=== PATIENT | female | born 1960 | race Caucasian/White ===

== ENCOUNTER 2016-08-08 19:16 | Inpatient (IN) | payer MEDICARE, MEDICAID ==
--- NOTE | 2016-08-08 20:12 | EKG REPORT ---
SEVERITY:- ABNORMAL ECG - SINUS RHYTHM PROBABLE LEFT ATRIAL ABNORMALITY NONSPECIFIC T ABNORMALITIES, ANT-LAT LEADS BORDERLINE PROLONGED QT INTERVAL : Confirmed by: Jodie Stevenson 08-Aug-2016 20:11:19
--- NOTE | 2016-08-08 20:24 | ER Document Report ---
ED Medical Screen (RME) - General Stated Complaint: CHEST PAIN Mode of Arrival: Ambulatory Information source: Patient Notes: 56 y/o F presents to ED c/o chest pressure, generalized and pain, and headache since yesterday. Reports associated n/v/d yesterday. I have greeted and performed a rapid initial assessment of this patient. A comprehensive ED assessment and evaluation of the patient, analysis of test results and completion of the medical decision making process will be conducted by additional ED providers. TRAVEL OUTSIDE OF THE [place] IN LAST 30 DAYS: No - Related Data Allergies/Adverse Reactions: tramadol HCl [From Ultram] Allergy (Mild, Verified 08/08/16 20:11) aspirin [Aspirin] Allergy (Verified 08/08/16 20:11) diclofenac sodium [From Voltaren] Allergy (Verified 08/08/16 20:11) penicillin G [Penicillin G] Allergy (Verified 08/08/16 20:11) Past Medical History - Social History Frequency of alcohol use: None Drug Abuse: None - Past Medical History Cardiac Medical History: Reports: Hx Hypertension Pulmonary Medical History: Reports: Hx COPD - Emphesyma Renal/ Medical History: Reports: Hx Ovarian Cysts. Denies: Hx Peritoneal Dialysis Musculoskeltal Medical History: Reports Hx Arthritis - RA Psychiatric Medical History: Reports: Hx Anxiety, Hx Bipolar Disorder, Hx Depression Past Surgical History: Reports: Hx Appendectomy, Hx Cholecystectomy, Hx Hysterectomy - Immunizations Immunizations up to date: Yes Hx Diphtheria, Pertussis, Tetanus Vaccination: Yes Physical Exam - Vital signs Vitals: Temp Pulse Resp BP Pulse Ox 98.3 F 99 20 117/79 92 08/08/16 19:56 08/08/16 19:56 08/08/16 19:56 08/08/16 19:56 08/08/16 19:56 - General General appearance: Alert In distress: None - Respiratory Respiratory status: No respiratory distress - Cardiovascular Pulses: Normal: Radial Normal capillary refill: Yes Course - Vital Signs Vital signs: Temp Pulse Resp BP Pulse Ox 98.3 F 99 20 117/79 92 08/08/16 19:56 08/08/16 19:56 08/08/16 19:56 08/08/16 19:56 08/08/16 19:56
[2016-08-08 21:00] LABS: ABSOLUTE BASOPHILS # (AUTO) 0.1 10^3/uL (0.0-0.2); ABSOLUTE EOSINOPHILS # (AUTO) 0.1 10^3/uL (0.0-0.6); ABSOLUTE MONOCYTES (AUTO) 0.9 10^3/uL (0.1-1.4); ABSOLUTE NEUT (AUTO) 4.9 10^3/uL (1.7-8.2); BASOPHILS % (AUTO) 0.5 % (0-2); HEMATOCRIT 38.5 % (36.0-47.0); HEMOGLOBIN 13.6 g/dL (12.0-15.5); HGB HCT DIFFERENCE 2.3; LYMPHOCYTES % (AUTO) 45.4 % (13-45); MEAN CORPUSCULAR HEMOGLOBIN 30.5 pg (27.0-33.4); MEAN CORPUSCULAR HGB CONC 35.2 g/dL (32.0-36.0); MEAN CORPUSCULAR VOLUME 87 fl (80-97); MONOCYTES % (AUTO) 7.9 % (3-13); RED BLOOD COUNT 4.45 10^6/uL (3.72-5.28); RED CELL DISTRIBUTION WIDTH 14.4 % (11.5-14.0); SEGMENTED NEUTROPHILS % (AUTO) 45.2 % (42-78); WHITE BLOOD COUNT 10.9 10^3/uL (4.0-10.5)
[2016-08-08 21:01] LABS: APPEARANCE,URINE CLEAR; BILIRUBIN,URINE NEGATIVE (NEGATIVE); GLUCOSE, URINE NEGATIVE (NEGATIVE); KETONES,URINE NEGATIVE (NEGATIVE); LEUKOCYTE ESTERASE,URINE NEGATIVE (NEGATIVE); NITRITE,URINE NEGATIVE (NEGATIVE); PROTEIN,URINE NEGATIVE (NEGATIVE); URINE SPECIFIC GRAVITY 1.004; UROBILINOGEN,URINE NEGATIVE mg/dL (<2.0)
[2016-08-08 21:18] LABS: ALANINE AMINOTRANSFERASE 19 U/L (9-52); ALBUMIN 4.5 g/dL (3.5-5.0); ALKALINE PHOSPHATASE 74 U/L (38-126); ANION GAP 10 (5-19); ASPARTATE AMINO TRANSFERASE 17 U/L (14-36); BILIRUBIN,TOTAL 0.5 mg/dL (0.2-1.3); BLOOD UREA NITROGEN 11 mg/dL (7-20); CALCIUM 9.5 mg/dL (8.4-10.2); CARBON DIOXIDE 28 mmol/L (22-30); CHLORIDE 81 mmol/L (98-107); CREATINE KINASE 47 U/L (30-135); CREATININE RESULT 1.17 mg/dL (0.52-1.25); GLUCOSE 102 mg/dL (75-110); LIPASE 206.8 U/L (23-300); POTASSIUM 3.7 mmol/L (3.6-5.0); TOTAL PROTEIN 6.9 g/dL (6.3-8.2)
[2016-08-08 21:21] LABS: SODIUM 118.8 mmol/L (137-145)
[2016-08-08 21:29] LABS: CREATINE KINASE MB 0.69 ng/mL (<4.55)
[2016-08-08 21:32] LABS: TROPONIN I < 0.012 ng/mL
[2016-08-09] MEDS ORDERED: NORMAL SALINE 1000 ML 1,000 ML IV ONE (00:40)
[2016-08-09] MEDS ORDERED: HYDROMORPHONE HCL INJ/PF 2 MG/ML AMPULE IV ONE (01:38)
[2016-08-09] MEDS ORDERED: ALBUTEROL SULFATE HFA (90 MCG/PUFF) 200 PUFF/8.5 GM MDI IH PRN (01:42)
[2016-08-09] MEDS ORDERED: FUROSEMIDE INJ/PF 20 MG/2 ML SDV IV ONE (01:42)
--- NOTE | 2016-08-09 01:45 | ER Document Report ---
ED General - General Chief Complaint: Chest Pain Stated Complaint: CHEST PAIN Mode of Arrival: Ambulatory Notes: Patient is a 56-year-old female with past medical history of chronic hyponatremia who presents complaining of diffuse body pain and lightheadedness. States this feels very similar to when she's had severe hyponatremia in the past that has required her to be admitted to the hospital. Denies any alcohol use, diuretic use, or excessive water intake. Notes that the pain is primarily located in her chest, abdomen and low back. Describes the pain as a severe, constant pain. Nothing improves or worsens the pain. She has not seen her primary care physician regarding today's concerns. Denies any focal weakness, numbness, or seizures. No history of DVT or pulmonary embolus. Does not use any form of estrogen. TRAVEL OUTSIDE OF THE [place] IN LAST 30 DAYS: No - Related Data Allergies/Adverse Reactions: tramadol HCl [From Ultram] Allergy (Mild, Verified 08/08/16 20:11) aspirin [Aspirin] Allergy (Verified 08/08/16 20:11) diclofenac sodium [From Voltaren] Allergy (Verified 08/08/16 20:11) penicillin G [Penicillin G] Allergy (Verified 08/08/16 20:11) Home Medications: Current Home Medications Lisinopril/Hydrochlorothiazide [Lisinopril-Hctz 20-25 mg Tab] 1 each PO DAILY [History] Ondansetron [Zuplenz] 8 mg PO TID PRN 08/09/16 [History] Paroxetine HCl [Paxil Cr 25 Mg Tab.Sr] 50 mg PO DAILY 08/09/16 [History] Past Medical History - General Information source: Patient - Social History Smoking Status: Former Smoker Frequency of alcohol use: None Drug Abuse: None Lives with: Spouse/Significant other Family History: Reviewed & Not Pertinent Patient has suicidal ideation: No Patient has homicidal ideation: No - Past Medical History Cardiac Medical History: Reports: Hx Hypertension Pulmonary Medical History: Reports: Hx COPD - Emphesyma Renal/ Medical History: Reports: Hx Ovarian Cysts. Denies: Hx Peritoneal Dialysis Musculoskeltal Medical History: Reports Hx Arthritis - RA Psychiatric Medical History: Reports: Hx Anxiety, Hx Bipolar Disorder, Hx Depression Past Surgical History: Reports: Hx Appendectomy, Hx Cholecystectomy, Hx Hysterectomy - Immunizations Immunizations up to date: Yes Hx Diphtheria, Pertussis, Tetanus Vaccination: Yes Review of Systems - Review of Systems Notes: Constitutional: Negative for fever. HENT: Negative for sore throat. Eyes: Negative for visual changes. Cardiovascular: Positive for chest pain. Respiratory: Negative for shortness of breath. Gastrointestinal: Positive for abdominal pain and vomiting Genitourinary: Negative for dysuria. Musculoskeletal: Negative for back pain. Skin: Negative for rash. Neurological: Negative for headaches, weakness or numbness. 10 point ROS negative except as marked above and in HPI. Physical Exam - Vital signs Vitals: Temp Pulse Resp BP Pulse Ox 98.3 F 99 20 117/79 92 08/08/16 19:56 08/08/16 19:56 08/08/16 19:56 08/08/16 19:56 08/08/16 19:56 Interpretation: Normal Notes: PHYSICAL EXAMINATION: GENERAL: He is uncomfortable but in no acute distress HEAD: Atraumatic, normocephalic. EYES: Pupils equal round and reactive to light, extraocular movements intact, sclera anicteric, conjunctiva are normal. ENT: nares patent, oropharynx clear without exudates. Moist mucous membranes. NECK: Normal range of motion, supple without lymphadenopathy LUNGS: Breath sounds clear to auscultation bilaterally and equal. No wheezes rales or rhonchi. HEART: Regular rate and rhythm without murmurs ABDOMEN: Soft, nontender, normoactive bowel sounds. No guarding, no rebound. No masses appreciated. EXTREMITIES: Normal range of motion, no pitting or edema. No cyanosis. NEUROLOGICAL: No focal neurological deficits. Moves all extremities spontaneously and on command. PSYCH: Anxious SKIN: Warm, Dry, normal turgor, no rashes or lesions noted. Course - Re-evaluation Re-evalutation: 08/09/16 01:44 Patient presents with severe hyponatremia what I suspect be diffuse musculoskeletal spasms. She complains of total body pain worsen her back, abdomen and chest all the she has no focal abdominal tenderness on exam. No rebound or guarding. I do not suspect any acute biliary pathology, pancreatitis , bowel obstruction, or mesenteric ischemia based on her exam and history. Her EKG is unremarkable and her troponin is negative. I do not suspect ACS, PE, or aortic dissection. Chest x-ray is clear. Patient has had similar pain in the past with severe hyponatremia and may be related. I discussed this case with the hospitalist Dr. Obrien will admit - Vital Signs Vital signs: Temp Pulse Resp BP Pulse Ox 98.3 F 99 20 117/79 92 08/08/16 19:56 08/08/16 19:56 08/08/16 19:56 08/08/16 19:56 08/08/16 19:56 - Laboratory Result Diagrams: 08/08/16 20:47 08/09/16 01:38 Laboratory results interpreted by me: 08/08/16 08/08/16 08/09/16 20:47 20:47 01:38 WBC 10.9 H RDW 14.4 H Lymphocytes % 45.4 H Absolute Lymphocytes 5.0 H Sodium 118.8 L* 118.5 L* Potassium 3.2 L Chloride 81 L 82 L Est GFR ( Amer) 57 L Est GFR (Non-Af Amer) 48 L 51 L - Diagnostic Test Radiology reviewed: Image reviewed, Reports reviewed Radiology results interpreted by me: 08/09/16 02:57 Chest x-ray: No acute infiltrate - EKG Interpretation by Me Additional EKG results interpreted by me: 08/09/16 02:57 Sinus rhythm. Rate 96. No ST elevations or depressions. QTC is 496. Discharge - Discharge Clinical Impression: Hyponatremia, Epigastric pain Condition: Fair Disposition: ADMITTED INPATIENT Admitting Provider: Suhail Obrien Unit Admitted: IMCU Referrals: JANAY GRULLON, [employer]ATION SUPERVISOR-C [Primary Care Provider] - Follow up as needed
[2016-08-09] MEDS ORDERED: ACETAMINOPHEN 325 MG TABLET PO PRN (01:47)
[2016-08-09] MEDS ORDERED: ONDANSETRON HCL INJ/PF 4 MG/2 ML SDV IV PRN (01:47)
[2016-08-09] MEDS ORDERED: MAGNESIUM HYDROXIDE SUSP 30 ML UDCUP PO PRN (01:47)
[2016-08-09 02:39] LABS: ANION GAP 7 (5-19); BLOOD UREA NITROGEN 10 mg/dL (7-20); CALCIUM 8.9 mg/dL (8.4-10.2); CARBON DIOXIDE 30 mmol/L (22-30); CHLORIDE 82 mmol/L (98-107); GLUCOSE 89 mg/dL (75-110); POTASSIUM 3.2 mmol/L (3.6-5.0)
[2016-08-09 02:50] LABS: SODIUM 118.5 mmol/L (137-145)
[2016-08-09] MEDS: METOPROLOL TARTRATE 50 MG TABLET PO SCH ×2 (02:51→14:16)
[2016-08-09] MEDS ORDERED: LACTULOSE SYRUP 20 GM/30 ML UDCUP PO ONE (03:57)
[2016-08-09] MEDS: POTASSI CL 20 MEQ/50 ML RIDER 20 MEQ/50 ML RTUPB IV SCH ×2 (04:59→06:52)
--- NOTE | 2016-08-09 06:17 | PDOC H&P ---
History of Present Illness Admission Date/PCP: 08/09/16 01:47 SONAM HUBER Patient complains of: Epigastric pain History of Present Illness: NANNETTE SHAFFER is a 56 year old female with a past medical history of depression with anxiety, hypertension, tobacco, COPD and hyponatremia. Who had been her usual state of health until approximately 7 days ago with a myriad of vague complaints including headache nausea without vomiting epigastric pain low back pain and fatigue. And is seemingly most focused on epigastric pain for which she has taken several [id number] preparations without improvement prompting her to seek evaluation emergency room. In the emergency room she is found to have hyponatremia with sodium of 118, and hyponatremia with a serum osmolarity of 248 and urine specific gravity of 1.001. And is referred to the hospitalist for admission. She admits to the sensation of chronic thirst consuming a minimum of 4 glasses each of water, tea and soda throughout the day. Past Medical History Cardiac Medical History: Reports: Hypertension Pulmonary Medical History: Reports: Chronic Obstructive Pulmonary Disease (COPD ) - Emphesyma Musculoskeltal Medical History: Reports: Arthritis - RA Psychiatric Medical History: Reports: Bipolar Disorder, Depression, General Anxiety Disorder, Tobacco Dependency Past Surgical History Past Surgical History: Reports: Appendectomy, Cholecystectomy, Hysterectomy Social History Information Source: Patient Lives with: Spouse/Significant other Smoking Status: Former Smoker Frequency of Alcohol Use: None Hx Recreational Drug Use: No Hx Prescription Drug Abuse: No - Advance Directive Resuscitation Status: Full Code Family History Family History: Hypertension Parental Family History Reviewed: Yes Children Family History Reviewed: Yes Sibling(s) Family History Reviewed.: Yes Medication/Allergy Home Medications: Lisinopril/Hydrochlorothiazide [Lisinopril-Hctz 20-25 mg Tab] 1 each PO DAILY Ondansetron [Zuplenz] 8 mg PO TID PRN 08/09/16 Paroxetine HCl [Paxil Cr 25 Mg Tab.Sr] 50 mg PO DAILY 08/09/16 Allergies/Adverse Reactions: tramadol HCl [From Ultram] Allergy (Mild, Verified 08/08/16 20:11) aspirin [Aspirin] Allergy (Verified 08/08/16 20:11) diclofenac sodium [From Voltaren] Allergy (Verified 08/08/16 20:11) penicillin G [Penicillin G] Allergy (Verified 08/08/16 20:11) Review of Systems Constitutional: PRESENT: as per HPI, fatigue. ABSENT: chills, fever(s), headache(s), weakness, weight gain, weight loss Eyes: ABSENT: visual disturbances Ears: ABSENT: hearing changes Cardiovascular: ABSENT: chest pain, dyspnea on exertion, edema, orthropnea, palpitations Respiratory: ABSENT: cough, hemoptysis Gastrointestinal: ABSENT: abdominal pain, constipation, diarrhea, hematemesis, hematochezia, nausea, vomiting Genitourinary: ABSENT: dysuria, hematuria Musculoskeletal: ABSENT: joint swelling Integumentary: ABSENT: rash, wounds Neurological: ABSENT: abnormal gait, abnormal speech, confusion, dizziness, focal weakness, syncope Psychiatric: ABSENT: anxiety, depression, homidical ideation, suicidal ideation Endocrine: ABSENT: cold intolerance, heat intolerance, polydipsia, polyuria Hematologic/Lymphatic: ABSENT: easy bleeding, easy bruising Physical Exam Vital Signs: Temp Pulse Resp BP Pulse Ox 98.3 F 99 11 L 111/70 95 08/08/16 19:56 08/08/16 19:56 08/09/16 05:01 08/09/16 05:01 08/09/16 05:01 General appearance: PRESENT: cooperative, disheveled, mild distress Head exam: PRESENT: atraumatic, normocephalic Eye exam: PRESENT: conjunctiva pink, EOMI, PERRLA. ABSENT: scleral icterus Ear exam: PRESENT: normal external ear exam Mouth exam: PRESENT: moist, tongue midline Neck exam: ABSENT: carotid bruit, JVD, lymphadenopathy, thyromegaly Respiratory exam: PRESENT: clear to auscultation benito. ABSENT: rales, rhonchi, wheezes Cardiovascular exam: PRESENT: RRR. ABSENT: diastolic murmur, rubs, systolic murmur Pulses: PRESENT: normal dorsalis pedis pul Vascular exam: PRESENT: normal capillary refill GI/Abdominal exam: PRESENT: hypoactive bowel sounds, soft, tenderness. ABSENT: ascites, diminished bowel sounds, distended, firm, guarding, hernia, hyperactive bowel sounds, mass Rectal exam: PRESENT: deferred Extremities exam: PRESENT: full ROM. ABSENT: calf tenderness, clubbing, pedal edema Neurological exam: PRESENT: alert, awake, oriented to person, oriented to place , oriented to time, oriented to situation, CN II-XII grossly intact. ABSENT: motor sensory deficit Psychiatric exam: PRESENT: anxious Skin exam: PRESENT: dry, intact, warm. ABSENT: cyanosis, rash Results Laboratory Results: 08/09/16 04:49 Serum Osmolality 248 L Impressions: Chest X-Ray 08/08/16 20:12 IMPRESSION: No acute findings. Assessment & Plan - Diagnosis (1) Hyponatremia Is this a current diagnosis for this admission?: YesPlan: History and labs support primary polydipsia, she is without vomiting headache or seizure admitted to and IMCU bed with fluid restriction and reevaluation of chemistry every 6 hours. Though the patient is convinced she is dehydrated, she is offered reassurance with unclear results (2) Gastritis Is this a current diagnosis for this admission?: YesPlan: It is possible this is ineffective hyponatremia itself however I will diagnose gastritis and treat with Carafate and H2 zach as proton pump inhibitor may exacerbate hyponatremia. - Time Time Spent: 30 to 50 Minutes
[2016-08-09] MEDS ORDERED: SUCRALFATE 1 GM TABLET PO ONE (06:22)
[2016-08-09] MEDS ORDERED: FAMOTIDINE 20 MG TABLET PO SCH (06:30)
[2016-08-09] MEDS ORDERED: INFLUENZA ADLT QUAD (36MOS+) 2016-17 VAC 0.5 ML SYR IM PRN (06:46)
[2016-08-09] MEDS: HEPARIN SOD (PORCINE) 5,000 UNIT/ML 1 ML SYRINGE SUBCUT SCH ×3 (06:55→22:33)
[2016-08-09] MEDS ORDERED: POTASSI CL 20 MEQ/NS 1L 1,000 ML IV PRN (07:48)
[2016-08-09] MEDS ORDERED: POTASSIUM CHLORIDE 10 MEQ TABLET.SA PO ONE (07:48)
[2016-08-09] MEDS ORDERED: BISACODYL 10 MG SUPP.RECT PR ONE (09:00)
[2016-08-09] MEDS: SUCRALFATE 1 GM TABLET PO SCH ×4 (09:09→22:33)
[2016-08-09] MEDS: LISINOPRIL 10 MG TABLET PO SCH (09:10)
[2016-08-09] MEDS ORDERED: PAROXETINE HCL 20 MG TABLET PO SCH (10:00)
[2016-08-09 10:37] LABS: ANION GAP 6 (5-19); BLOOD UREA NITROGEN 11 mg/dL (7-20); CALCIUM 9.3 mg/dL (8.4-10.2); CARBON DIOXIDE 29 mmol/L (22-30); CHLORIDE 86 mmol/L (98-107); CREATININE RESULT 1.25 mg/dL (0.52-1.25); GLUCOSE 114 mg/dL (75-110); POTASSIUM 3.9 mmol/L (3.6-5.0); SODIUM 121.3 mmol/L (137-145)
--- NOTE | 2016-08-09 13:33 | PDOC PROGRESS REPORT ---
Subjective Progress Note for:: 08/09/16 Subjective:: Patient has had a 4-5 day history of epigastric pain, nausea, vomiting. She has had remote cholecystectomy. She's never had an EGD. Patient states that she does not take NSAIDs because they "hurt her stomach". Patient denies fever , chills, headache, new focal weakness, chest pain, shortness of breath, diarrhea, constipation. Physical Exam Vital Signs: Temp Pulse Resp BP Pulse Ox 97.5 F 69 16 146/60 H 97 08/09/16 11:48 08/09/16 11:48 08/09/16 11:48 08/09/16 11:48 08/09/16 11:48 Intake & Output 08/08/16 08/09/16 08/10/16 06:59 06:59 06:59 Intake Total 300 Balance 300 Weight 63.5 kg GENERAL: No acute distress HEENT: Conjunctiva clear, nonicteric, moist mucous membranes, no JVD, midline trachea RESPIRATORY: Clear to auscultation bilaterally, no wheezes, no rhonchi CARDIAC: Regular rate and rhythm, no murmurs/gallops/rubs ABDOMEN: Soft, nondistended, mild epigastric tenderness, positive bowel sounds, no rebound, no guarding EXTREMETIES: No edema, cyanosis, clubbing NEUROLOGIC: Alert, oriented to person/place/time, CN's grossly intact, no focal deficits SKIN: No rash, wounds PSYCH: Normal mood, normal affect Results Laboratory Results: 08/09/16 09:49 08/09/16 08/09/16 08/09/16 04:49 09:49 09:49 Sodium 121.3 L Potassium 3.9 Chloride 86 L Carbon Dioxide 29 Anion Gap 6 BUN 11 Creatinine 1.25 Est GFR ( Amer) 53 L Est GFR (Non-Af Amer) 44 L Glucose 114 H Serum Osmolality 248 L Calcium 9.3 TSH 2.60 Impressions: Chest X-Ray 08/08/16 20:12 IMPRESSION: No acute findings. Assessment & Plan - Diagnosis (1) Hyponatremia Is this a current diagnosis for this admission?: YesPlan: Likely secondary to hydrochlorothiazide administration. Discontinue hydrochlorothiazide. Fluid restriction. (2) Hypertension Is this a current diagnosis for this admission?: YesPlan: Continue lisinopril. Discontinue hydrochlorothiazide secondary to hyponatremia. (3) Epigastric pain Is this a current diagnosis for this admission?: YesPlan: Patient states that she does not take NSAIDs because they "hurt her stomach". IV Protonix. Check CT scan abdomen/pelvis. Consult GI for EGD. (4) COPD (chronic obstructive pulmonary disease) Is this a current diagnosis for this admission?: YesPlan: When necessary albuterol (5) Congestive heart failure Qualifiers: Congestive heart failure type: unspecified congestive heart failure type Congestive heart failure chronicity: unspecified congestive heart failure chronicity Qualified Code(s): I50.9 - Heart failure, unspecified Is this a current diagnosis for this admission?: YesPlan: Patient carries history of CHF however Echocardiogram done in 2016 showed normal ejection fraction, no diastolic dysfunction, no significant valvular disease. (6) Depression Is this a current diagnosis for this admission?: YesPlan: Patient takes SSRI in this incidentally dorota contribute to hyponatremia. (7) Arthritis Is this a current diagnosis for this admission?: Yes - Time Time Spent with patient: 35 or more minutes
[2016-08-09] MEDS: HYDROMORPHONE HCL INJ/PF 2 MG/ML AMPULE IV PRN ×2 (14:22→20:23)
--- NOTE | 2016-08-09 14:34 | PDOC CONSULTATION ---
Consultation Consult Date: 08/09/16 Attending physician:: CHRIS MALDONADO Consult reason:: Epigastric pain, dyspepsia, nausea vomiting History of Present Illness Admission Date/PCP: 08/09/16 01:47 SONAM HUBER History of Present Illness: Patient is here for hyponatremia. She has been here several times, she's never had an upper endoscopy before. She is complaining of some epigastric pain and tenderness with occasional nausea and vomiting. This has been going on for a while. She doesn't does have a history of rheumatoid arthritis cannot take any NSAIDs. She denies any melena. There is no dysphagia or odynophagia. There is a component of early satiety. I been asked by the attending physician to perform upper endoscopy to rule out peptic ulcer disease. She denies any blood in the stools. No changes of bowel habits. Past Medical History Cardiac Medical History: Reports: Hypertension Pulmonary Medical History: Reports: Chronic Obstructive Pulmonary Disease (COPD ) - Emphesyma Musculoskeltal Medical History: Reports: Arthritis - RA Psychiatric Medical History: Reports: Bipolar Disorder, Depression, General Anxiety Disorder, Tobacco Dependency Past Surgical History Past Surgical History: Reports: Appendectomy, Cholecystectomy, Hysterectomy Social History Lives with: Spouse/Significant other Smoking Status: Former Smoker Cigarettes Packs Per Day: 1 Number of Years Smokin Last Time Smoked: Frequency of Alcohol Use: None Hx Recreational Drug Use: No Hx Prescription Drug Abuse: No - Advance Directive Resuscitation Status: Full Code Family History Family History: Hypertension Parental Family History Reviewed: Yes Children Family History Reviewed: Unknown Sibling(s) Family History Reviewed.: Unknown Medication/Allergy Home Medications: Lisinopril/Hydrochlorothiazide [Lisinopril-Hctz 20-25 mg Tab] 1 each PO DAILY Ondansetron HCl [Zofran 8 mg Tablet] 8 mg PO Q8HP PRN 08/09/16 Paroxetine HCl [Paxil 20 mg Tablet] 20 mg PO DAILY 08/09/16 Paroxetine HCl [Paxil] 30 mg PO DAILY 08/09/16 Allergies/Adverse Reactions: tramadol HCl [From Ultram] Allergy (Mild, Verified 08/08/16 20:11) aspirin [Aspirin] Allergy (Verified 08/08/16 20:11) diclofenac sodium [From Voltaren] Allergy (Verified 08/08/16 20:11) penicillin G [Penicillin G] Allergy (Verified 08/08/16 20:11) Review of Systems Constitutional: ABSENT: fever(s), headache(s), night sweats, weakness Eyes: ABSENT: visual disturbances Nose, Mouth, and Throat: ABSENT: mouth pain Cardiovascular: ABSENT: dyspnea on exertion, orthropnea, palpitations Respiratory: ABSENT: dyspnea, hemoptysis Gastrointestinal: PRESENT: nausea. ABSENT: coffee ground emesis, diarrhea, dysphagia, hematemesis, melena Genitourinary: ABSENT: dysuria, hematuria Musculoskeletal: ABSENT: deformity, joint swelling Integumentary: ABSENT: lesions, pruritus Neurological: ABSENT: numbness, paresthesias, syncope, tingling Psychiatric: ABSENT: anxiety Endocrine: ABSENT: polydipsia, polyphagia, polyuria Hematologic/Lymphatic: ABSENT: easy bruising Physical Exam Vital Signs: Temp Pulse Resp BP Pulse Ox 97.5 F 69 16 146/60 H 97 08/09/16 11:48 08/09/16 11:48 08/09/16 11:48 08/09/16 11:48 08/09/16 11:48 Intake & Output 08/08/16 08/09/16 08/10/16 06:59 06:59 06:59 Intake Total 300 Balance 300 Weight 63.5 kg General appearance: PRESENT: well-developed, well-nourished. ABSENT: no acute distress Head exam: PRESENT: atraumatic, normocephalic Eye exam: PRESENT: EOMI, PERRLA. ABSENT: nystagmus, periorbital swelling, scleral icterus Mouth exam: PRESENT: moist, neck supple Throat exam: ABSENT: tonsillar exudate, tonsillogmegaly Neck exam: ABSENT: meningismus, tenderness, thyromegaly Respiratory exam: PRESENT: clear to auscultation benito, symmetrical. ABSENT: tachypnea, unlabored Cardiovascular exam: PRESENT: RRR, +S1, +S2. ABSENT: rubs GI/Abdominal exam: PRESENT: normal bowel sounds, soft. ABSENT: Mobley's sign, rebound, rigid, tenderness Gentrourinary exam: ABSENT: lesions Extremities exam: ABSENT: joint swelling Musculoskeletal exam: PRESENT: full ROM Neurological exam: PRESENT: alert, awake, oriented to person, oriented to place , oriented to time, oriented to situation, reflexes normal, CN II-XII grossly intact Psychiatric exam: PRESENT: appropriate affect Skin exam: PRESENT: normal color. ABSENT: mottled, pallor, petechiae, urticaria , vesicles Results Laboratory Results: 08/09/16 09:49 08/09/16 08/09/16 08/09/16 04:49 09:49 09:49 Sodium 121.3 L Potassium 3.9 Chloride 86 L Carbon Dioxide 29 Anion Gap 6 BUN 11 Creatinine 1.25 Est GFR ( Amer) 53 L Est GFR (Non-Af Amer) 44 L Glucose 114 H Serum Osmolality 248 L Calcium 9.3 TSH 2.60 Impressions: Chest X-Ray 08/08/16 20:12 IMPRESSION: No acute findings. Assessment & Plan - Diagnosis (1) Epigastric pain Is this a current diagnosis for this admission?: YesPlan: Question possible peptic ulcer disease. She's not had an upper endoscopy done. Would be useful to make sure there is no peptic ulcer disease. The risks, benefits and alternatives of the procedure including risks of bleeding, perforation requiring surgery are explained to the patient detail and informed consents obtained. Patient is willing to proceed. Start PPI. We'll check for Helicobacter pylori. - Time Time Spent: 50 to 70 Minutes
[2016-08-09 18:20] LABS: BLOOD UREA NITROGEN 11 mg/dL (7-20); CALCIUM 8.6 mg/dL (8.4-10.2); CREATININE RESULT 1.24 mg/dL (0.52-1.25); GLUCOSE 129 mg/dL (75-110)
[2016-08-09 18:21] LABS: ANION GAP 6 (5-19); CARBON DIOXIDE 28 mmol/L (22-30); CHLORIDE 87 mmol/L (98-107)
[2016-08-09 18:25] LABS: POTASSIUM 4.8 mmol/L (3.6-5.0)
[2016-08-09 18:31] LABS: SODIUM 120.9 mmol/L (137-145)
[2016-08-09] MEDS: PANTOPRAZOLE SODIUM 40 MG VIAL IV SCH (22:33)
[2016-08-09] MEDS: AMITRIPTYLINE HCL 25 MG TABLET PO SCH (22:33)
[2016-08-10] MEDS: HYDROMORPHONE HCL INJ/PF 2 MG/ML AMPULE IV PRN ×4 (00:43→22:31)
[2016-08-10] MEDS: METOPROLOL TARTRATE 50 MG TABLET PO SCH ×2 (02:06→14:28)
[2016-08-10] MEDS: HEPARIN SOD (PORCINE) 5,000 UNIT/ML 1 ML SYRINGE SUBCUT SCH ×3 (05:17→21:43)
[2016-08-10 07:21] LABS: ABSOLUTE BASOPHILS # (AUTO) 0.1 10^3/uL (0.0-0.2); ABSOLUTE EOSINOPHILS # (AUTO) 0.1 10^3/uL (0.0-0.6); ABSOLUTE LYMPHOCYTES (AUTO) 3.8 10^3/uL (0.5-4.7); ABSOLUTE MONOCYTES (AUTO) 0.9 10^3/uL (0.1-1.4); ABSOLUTE NEUT (AUTO) 8.1 10^3/uL (1.7-8.2); BASOPHILS % (AUTO) 0.8 % (0-2); EOSINOPHILS % (AUTO) 0.7 % (0-6); HEMATOCRIT 36.4 % (36.0-47.0); HEMOGLOBIN 12.5 g/dL (12.0-15.5); HGB HCT DIFFERENCE 1.1; LYMPHOCYTES % (AUTO) 29.5 % (13-45); MEAN CORPUSCULAR HEMOGLOBIN 30.1 pg (27.0-33.4); MEAN CORPUSCULAR HGB CONC 34.4 g/dL (32.0-36.0); MEAN CORPUSCULAR VOLUME 88 fl (80-97); MONOCYTES % (AUTO) 6.8 % (3-13); RED BLOOD COUNT 4.15 10^6/uL (3.72-5.28); RED CELL DISTRIBUTION WIDTH 14.4 % (11.5-14.0); SEGMENTED NEUTROPHILS % (AUTO) 62.2 % (42-78)
[2016-08-10 07:34] LABS: ANION GAP 6 (5-19); BLOOD UREA NITROGEN 8 mg/dL (7-20); CALCIUM 9.1 mg/dL (8.4-10.2); CARBON DIOXIDE 29 mmol/L (22-30); CHLORIDE 93 mmol/L (98-107); CREATININE RESULT 1.14 mg/dL (0.52-1.25); GLUCOSE 93 mg/dL (75-110); POTASSIUM 5.1 mmol/L (3.6-5.0); SODIUM 127.5 mmol/L (137-145)
[2016-08-10] MEDS: SUCRALFATE 1 GM TABLET PO SCH ×4 (08:32→21:43)
[2016-08-10] MEDS: LISINOPRIL 10 MG TABLET PO SCH (09:57)
[2016-08-10] MEDS: PANTOPRAZOLE SODIUM 40 MG VIAL IV SCH ×2 (09:57→21:43)
[2016-08-10] MEDS ORDERED: DIPHENHYDRAMINE HCL 50 MG/ML VIAL ONE (10:54)
[2016-08-10] MEDS ORDERED: PROMETHAZINE HCL INJ 25 MG/1 ML VIAL ONE (10:54)
[2016-08-10] MEDS ORDERED: MIDAZOLAM 2 MG/2 ML INJ ONE (10:54)
[2016-08-10] MEDS ORDERED: ONDANSETRON HCL INJ/PF 4 MG/2 ML SDV ONE (10:54)
[2016-08-10] MEDS ORDERED: NALOXONE HCL INJ/PF 0.4 MG/1 ML SDV ONE (10:54)
[2016-08-10] MEDS ORDERED: FLUMAZENIL INJ 0.5 MG/5 ML VIAL IV ONE (10:55)
[2016-08-10] MEDS ORDERED: EPINEPHRINE INJ 1 MG/10 ML DISP.SYRIN ONE (10:55)
[2016-08-10] MEDS ORDERED: GLUCAGON,HUMAN RECOMB 1 MG INJ ONE (10:55)
[2016-08-10] MEDS ORDERED: FENTANYL CITRATE INJ/PF 100 MCG/2 ML AMPUL ONE (10:55)
[2016-08-10] MEDS: MIDAZOLAM 2 MG/2 ML INJ ONE ×2 (11:21→11:28)
--- NOTE | 2016-08-10 11:36 | Operative Report ---
Operative Report DATE OF SURGERY: 08/10/16 Operative Report: The risks benefits and alternatives of the procedure explained to the patient in detail and informed consent is obtained that GIF Olympus video scope was inserted into the patient's mouth and hypopharynx the esophagus is identified intubated and insufflated the scope was then advanced through the esophagus stomach and duodenum retroflexion maneuver is done the esophagus stomach and first and second portions of the duodenum examined PREOPERATIVE DIAGNOSIS: Epigastric pain, nausea vomiting POSTOPERATIVE DIAGNOSIS: Hiatal hernia. Schatzki's ring. Esophagitis versus Vaughn's status post biopsy. Gastritis status post biopsy. Duodenitis OPERATION: EGD with biopsy SURGEON: CHRIS MALDONADO ANESTHESIA: Moderate Sedation - 3 mg of Versed, 50 g of fentanyl. Conscious sedation monitoring time 15 minutes. TISSUE REMOVED OR ALTERED: Gastric specimen obtained rule out Helicobacter pylori, esophageal specimen obtained confirm Vaughn's esophagus COMPLICATIONS: None. ESTIMATED BLOOD LOSS: none. INTRAOPERATIVE FINDINGS: As noted above PROCEDURE: Patient tolerated the procedure well No immediate postprocedure complications are noted. Patient sent back to her room in good condition. Advance her diet as tolerated ,follow-up on biopsies Resume previous activity level Continue PPI Treat for Helicobacter pylori if positive
--- NOTE | 2016-08-10 16:54 | PDOC PROGRESS REPORT ---
Subjective Progress Note for:: 08/10/16 Subjective:: Patient has continued abdominal discomfort. Patient denies fever, chills, headache, new focal weakness, chest pain, shortness of breath, diarrhea, constipation. Physical Exam Vital Signs: Temp Pulse Resp BP Pulse Ox 98.8 F 76 13 109/75 94 08/10/16 11:00 08/10/16 14:00 08/10/16 12:05 08/10/16 12:05 08/10/16 12:05 Intake & Output 08/09/16 08/10/16 08/11/16 06:59 06:59 06:59 Intake Total 2322 Balance 2322 Weight 63.5 kg 65.4 kg GENERAL: No acute distress HEENT: Conjunctiva clear, nonicteric, moist mucous membranes, no JVD, midline trachea RESPIRATORY: Clear to auscultation bilaterally, no wheezes, no rhonchi CARDIAC: Regular rate and rhythm, no murmurs/gallops/rubs ABDOMEN: Soft, nondistended, mild epigastric tenderness, positive bowel sounds, no rebound, no guarding EXTREMETIES: No edema, cyanosis, clubbing NEUROLOGIC: Alert, oriented to person/place/time, CN's grossly intact, no focal deficits SKIN: No rash, wounds PSYCH: Normal mood, normal affect Results Laboratory Results: 08/10/16 06:59 08/10/16 06:59 08/09/16 08/10/16 08/10/16 17:34 06:59 06:59 WBC 13.0 H RBC 4.15 Hgb 12.5 Hct 36.4 MCV 88 MCH 30.1 MCHC 34.4 RDW 14.4 H Plt Count 242 Seg Neutrophils % 62.2 Lymphocytes % 29.5 Monocytes % 6.8 Eosinophils % 0.7 Basophils % 0.8 Absolute Neutrophils 8.1 Absolute Lymphocytes 3.8 Absolute Monocytes 0.9 Absolute Eosinophils 0.1 Absolute Basophils 0.1 Sodium 120.9 L* 127.5 L Potassium 4.8 5.1 H Chloride 87 L 93 L Carbon Dioxide 28 29 Anion Gap 6 6 BUN 11 8 Creatinine 1.24 1.14 Est GFR ( Amer) 54 L 59 L Est GFR (Non-Af Amer) 44 L 49 L Glucose 129 H 93 Calcium 8.6 9.1 Impressions: Chest X-Ray 08/08/16 20:12 IMPRESSION: No acute findings. Abdomen/Pelvis CT 08/09/16 00:00 IMPRESSION: No acute changes. Post cholecystectomy hysterectomy and appendectomy Very heavy atherosclerotic disease of the abdominal aorta without aneurysm Assessment & Plan - Diagnosis (1) Hyponatremia Is this a current diagnosis for this admission?: YesPlan: Likely secondary to hydrochlorothiazide administration. Discontinue hydrochlorothiazide. Fluid restriction. (2) Hypertension Is this a current diagnosis for this admission?: YesPlan: Decrease lisinopril to 10mg daily due to hyperkalemia. Discontinued hydrochlorothiazide secondary to hyponatremia. (3) Epigastric pain Is this a current diagnosis for this admission?: YesPlan: EGD showed esophagitis, gastritis, duodenitis. Continue IV Protonix. CT scan abdomen/pelvis shows no acute process. (4) COPD (chronic obstructive pulmonary disease) Is this a current diagnosis for this admission?: YesPlan: When necessary albuterol (5) Congestive heart failure Qualifiers: Congestive heart failure type: unspecified congestive heart failure type Congestive heart failure chronicity: unspecified congestive heart failure chronicity Qualified Code(s): I50.9 - Heart failure, unspecified Is this a current diagnosis for this admission?: YesPlan: Patient carries history of CHF however Echocardiogram done in 2016 showed normal ejection fraction, no diastolic dysfunction, no significant valvular disease. (6) Depression Is this a current diagnosis for this admission?: YesPlan: Patient takes SSRI in this incidentally dorota contribute to hyponatremia. (7) Arthritis Is this a current diagnosis for this admission?: Yes - Time Time Spent with patient: 25-34 minutes
[2016-08-10] MEDS: AMITRIPTYLINE HCL 25 MG TABLET PO SCH (21:43)
[2016-08-11] MEDS: METOPROLOL TARTRATE 50 MG TABLET PO SCH (02:24)
[2016-08-11] MEDS: HYDROMORPHONE HCL INJ/PF 2 MG/ML AMPULE IV PRN ×2 (02:34→08:51)
[2016-08-11] MEDS: HEPARIN SOD (PORCINE) 5,000 UNIT/ML 1 ML SYRINGE SUBCUT SCH (05:50)
[2016-08-11 08:11] LABS: ABSOLUTE BASOPHILS # (AUTO) 0.1 10^3/uL (0.0-0.2); ABSOLUTE EOSINOPHILS # (AUTO) 0.1 10^3/uL (0.0-0.6); ABSOLUTE LYMPHOCYTES (AUTO) 3.6 10^3/uL (0.5-4.7); ABSOLUTE MONOCYTES (AUTO) 0.7 10^3/uL (0.1-1.4); ABSOLUTE NEUT (AUTO) 6.1 10^3/uL (1.7-8.2); BASOPHILS % (AUTO) 0.9 % (0-2); EOSINOPHILS % (AUTO) 1.4 % (0-6); HEMATOCRIT 33.8 % (36.0-47.0); HEMOGLOBIN 11.6 g/dL (12.0-15.5); LYMPHOCYTES % (AUTO) 33.8 % (13-45); MEAN CORPUSCULAR HEMOGLOBIN 30.3 pg (27.0-33.4); MEAN CORPUSCULAR HGB CONC 34.4 g/dL (32.0-36.0); MEAN CORPUSCULAR VOLUME 88 fl (80-97); MONOCYTES % (AUTO) 6.9 % (3-13); RED BLOOD COUNT 3.83 10^6/uL (3.72-5.28); RED CELL DISTRIBUTION WIDTH 14.4 % (11.5-14.0); WHITE BLOOD COUNT 10.7 10^3/uL (4.0-10.5)
[2016-08-11 08:17] LABS: ANION GAP 5 (5-19); BLOOD UREA NITROGEN 9 mg/dL (7-20); CALCIUM 9.1 mg/dL (8.4-10.2); CARBON DIOXIDE 30 mmol/L (22-30); CHLORIDE 93 mmol/L (98-107); GLUCOSE 108 mg/dL (75-110); POTASSIUM 4.3 mmol/L (3.6-5.0); SODIUM 127.7 mmol/L (137-145)
[2016-08-11] MEDS: PANTOPRAZOLE SODIUM 40 MG VIAL IV SCH (08:50)
[2016-08-11] MEDS: SUCRALFATE 1 GM TABLET PO SCH (08:50)
[2016-08-11] MEDS ORDERED: LISINOPRIL 10 MG TABLET PO SCH (10:00)
[2016-08-11 10:30] VITALS: BP 129/67
--- NOTE | 2016-08-29 13:50 | PDOC DISCHARGE SUMMARY ---
General - Admit/Disc Date/PCP Admission Date/Primary Care Provider: 08/09/16 01:47 SONAM HUBER Discharge Date: 08/11/16 - Discharge Diagnosis (1) Hyponatremia Is this a current diagnosis for this admission?: Yes (2) Gastritis Is this a current diagnosis for this admission?: Yes (3) Hypertension Is this a current diagnosis for this admission?: Yes (4) COPD (chronic obstructive pulmonary disease) Is this a current diagnosis for this admission?: Yes (5) Depression Is this a current diagnosis for this admission?: Yes (6) Arthritis Is this a current diagnosis for this admission?: Yes - Additional Information Resuscitation Status: Full Code Discharge Activity: Activity As Tolerated Home Medications: Ondansetron HCl [Zofran 8 mg Tablet] 8 mg PO Q8HP PRN 08/09/16 Paroxetine HCl [Paxil 20 mg Tablet] 20 mg PO DAILY 08/09/16 Paroxetine HCl [Paxil] 30 mg PO DAILY 08/09/16 Acetaminophen [Tylenol 325 mg Tablet] 650 mg PO Q4HP PRN tablet 08/11/16 Albuterol Sulfate [Proair HFA Inhalation Aerosol 8.5 gm MDI] 2 puff IH Q6HP PRN hfa.aer.ad 08/11/16 Lansoprazole [Prevacid] 30 mg PO BID #60 capsule. 08/11/16 Lisinopril [Prinivil 10 mg Tablet] 10 mg PO DAILY #30 tablet 08/11/16 Metoprolol Tartrate [Lopressor 50 mg Tablet] 50 mg PO Q12H #60 tablet 08/11/16 Oxycodone HCl 10 mg PO Q6HP PRN #10 tablet 08/11/16 Sucralfate [Carafate 1 gm Tablet] 1 gm PO ACHS #120 tablet 08/11/16 History of Present Illness History of Present Illness: NANNETTE SHAFFER is a 56 year old female with a past medical history of depression with anxiety, hypertension, tobacco, COPD and hyponatremia. Who had been her usual state of health until approximately 7 days ago with a myriad of vague complaints including headache nausea without vomiting epigastric pain low back pain and fatigue. And is seemingly most focused on epigastric pain for which she has taken several [id number] preparations without improvement prompting her to seek evaluation emergency room. In the emergency room she is found to have hyponatremia with sodium of 118, and hyponatremia with a serum osmolarity of 248 and urine specific gravity of 1.001. And is referred to the hospitalist for admission. She admits to the sensation of chronic thirst consuming a minimum of 4 glasses each of water, tea and soda throughout the day. Hospital Course Hospital Course: Diagnosis (1) Hyponatremia Is this a current diagnosis for this admission?: YesPlan: Likely secondary to hydrochlorothiazide administration. Discontinue hydrochlorothiazide. Fluid restriction. (2) Hypertension Is this a current diagnosis for this admission?: YesPlan: Decrease lisinopril to 10mg daily due to hyperkalemia. Discontinued hydrochlorothiazide secondary to hyponatremia. (3) Epigastric pain Is this a current diagnosis for this admission?: YesPlan: EGD showed esophagitis, gastritis, duodenitis. Continue IV Protonix. CT scan abdomen/pelvis shows no acute process. (4) COPD (chronic obstructive pulmonary disease) Is this a current diagnosis for this admission?: YesPlan: When necessary albuterol (5) Congestive heart failure Qualifiers: Congestive heart failure type: unspecified congestive heart failure type Congestive heart failure chronicity: unspecified congestive heart failure chronicity Qualified Code(s): I50.9 - Heart failure, unspecified Is this a current diagnosis for this admission?: YesPlan: Patient carries history of CHF however Echocardiogram done in 2016 showed normal ejection fraction, no diastolic dysfunction, no significant valvular disease. (6) Depression Is this a current diagnosis for this admission?: YesPlan: Patient takes SSRI in this incidentally dorota contribute to hyponatremia. (7) Arthritis Is this a current diagnosis for this admission?: Yes Physical Exam Vital Signs: Temp Pulse Resp BP Pulse Ox 98.0 F 69 16 129/67 H 98 08/11/16 10:26 08/11/16 10:26 08/11/16 10:26 08/11/16 10:26 08/11/16 10:26 GENERAL: No acute distress HEENT: Conjunctiva clear, nonicteric, moist mucous membranes, no JVD, midline trachea RESPIRATORY: Clear to auscultation bilaterally, no wheezes, no rhonchi CARDIAC: Regular rate and rhythm, no murmurs/gallops/rubs ABDOMEN: Soft, nondistended, mild epigastric tenderness, positive bowel sounds, no rebound, no guarding EXTREMETIES: No edema, cyanosis, clubbing NEUROLOGIC: Alert, oriented to person/place/time, CN's grossly intact, no focal deficits SKIN: No rash, wounds PSYCH: Normal mood, normal affect Results Laboratory Results: 08/11/16 07:45 08/11/16 07:45 Impressions: Chest X-Ray 08/08/16 20:12 IMPRESSION: No acute findings. Abdomen/Pelvis CT 08/09/16 00:00 IMPRESSION: No acute changes. Post cholecystectomy hysterectomy and appendectomy Very heavy atherosclerotic disease of the abdominal aorta without aneurysm Qualifiers PATEINT BEING DISCHARGED WITH ANY OF THE FOLLOWING DIAGNOSIS?: No Plan Time Spent: Less than 30 Minutes
== END 2016-08-11 11:37 | disposition home or self-care (01) | DRG 641 ==
LOC: ER 19:16 → EH 08-09 01:47 → UNDOADMIN 08-09 03:54 → EH 08-09 03:54 → 3S 08-09 06:03
PROVIDERS: ADMIT Internal Medicine; ATTEND Internal Medicine
PROC: 0DB48ZX Excision of Esophagogastric Junction, Via Natural or Artificial Opening Endoscopic, Diagnostic (ICD-10-PCS; 2016-08-10)
PROC: 0DB68ZX Excision of Stomach, Via Natural or Artificial Opening Endoscopic, Diagnostic (ICD-10-PCS; principal; 2016-08-10 11:00)
PROC: 3E0234Z Introduction of Serum, Toxoid and Vaccine into Muscle, Percutaneous Approach (ICD-10-PCS; 2016-08-11)
DX: E87.1 Hypo-osmolality and hyponatremia (principal); K44.9 Diaphragmatic hernia without obstruction or gangrene; T50.2X5A Adverse effect of carbonic-anhydrase inhibitors, benzothiadiazides and other diuretics, initial encounter; K29.70 Gastritis, unspecified, without bleeding; K22.2 Esophageal obstruction; I11.0 Hypertensive heart disease with heart failure; I50.9 Heart failure, unspecified; E87.5 Hyperkalemia; J43.9 Emphysema, unspecified; K29.80 Duodenitis without bleeding; F41.1 Generalized anxiety disorder; F31.9 Bipolar disorder, unspecified; E87.6 Hypokalemia; M06.9 Rheumatoid arthritis, unspecified; Z90.49 Acquired absence of other specified parts of digestive tract; Z90.710 Acquired absence of both cervix and uterus; Z87.891 Personal history of nicotine dependence; Z88.0 Allergy status to penicillin; Z79.82 Long term (current) use of aspirin; Z79.899 Other long term (current) drug therapy; Z88.8 Allergy status to other drugs, medicaments and biological substances; Z23 Encounter for immunization
CPT/HCPCS: 36415; 43239; 71020; 74177; 80048; 80053; 81001; 82550; 82553; 83690; 83930; 83935; 84443; 84484; 85025; 87804; 88305; 88342; 90686; 93005; 93010; 96374; 96375; 99285; J0171; J1170; J1200; J1610; J1644; J1940; J2250; J2310; J2405; J2550; J3010; J3480; J3490; S0164

== ENCOUNTER 2017-02-06 22:53 | Emergency (ER) | payer MEDICARE, MEDICAID ==
[2017-02-07] MEDS ORDERED: MORPHINE SULFATE 10 MG/ML INJ IV ONE (00:20)
[2017-02-07] MEDS ORDERED: NORMAL SALINE 1000 ML 1,000 ML IV ONE (00:21)
--- NOTE | 2017-02-07 00:25 | ER Document Report ---
ED General - General Chief Complaint: Back Pain Stated Complaint: NECK BACK AND LEG PAIN Time Seen by Provider: 02/07/17 00:13 Notes: Patient is a 57-year-old female presents with complaint of pain that starts in her upper back and radiates down her back and down the back of her legs. No fevers. No vomiting. No chest pain. She has had diarrhea for over a week. She saw her doctor and it sounds like they tested for type of bacteria and started on metronidazole. She is unsure what the name of the bacteria was. She was also started on omeprazole. She continues to have some pain in her upper abdomen. No other complaints at this time. Does have a history of herniated disc in her back. She says this pain feels a bit different that is not just her low back and see her entire back. No loss of bowel control. No urinary retention. No weakness into her legs. No numbness into her feet. TRAVEL OUTSIDE OF THE [place] IN LAST 30 DAYS: No - Related Data Allergies/Adverse Reactions: tramadol HCl [From Ultram] Allergy (Mild, Verified 08/08/16 20:11) aspirin [Aspirin] Allergy (Verified 08/08/16 20:11) diclofenac sodium [From Voltaren] Allergy (Verified 08/08/16 20:11) penicillin G [Penicillin G] Allergy (Verified 08/08/16 20:11) Past Medical History - Social History Smoking Status: Unknown if Ever Smoked Frequency of alcohol use: None Drug Abuse: None Family History: Hypertension Patient has suicidal ideation: No Patient has homicidal ideation: No - Past Medical History Cardiac Medical History: Reports: Hx Hypertension Pulmonary Medical History: Reports: Hx COPD - Emphesyma Neurological Medical History: Denies: Hx Seizures Renal/ Medical History: Reports: Hx Ovarian Cysts. Denies: Hx Peritoneal Dialysis Musculoskeltal Medical History: Reports Hx Arthritis - RA Psychiatric Medical History: Reports: Hx Anxiety, Hx Bipolar Disorder, Hx Depression Past Surgical History: Reports: Hx Appendectomy, Hx Cholecystectomy, Hx Hysterectomy - Immunizations Immunizations up to date: Yes Hx Diphtheria, Pertussis, Tetanus Vaccination: Yes Review of Systems - Review of Systems Notes: My Normal Review Basic REVIEW OF SYSTEMS: CONSTITUTIONAL : Denies fever, chills, or sweats. Denies recent illness. EENT: Denies eye, ear, throat, or mouth pain or symptoms. Denies nasal or sinus congestion. CARDIOVASCULAR: Denies chest pain. RESPIRATORY: Denies cough, cold, or chest congestion. Denies shortness of breath, difficulty breathing, or wheezing. GASTROINTESTINAL: Upper abdominal pain. Some diarrhea.. Denies constipation. Last BM: GENITOURINARY: Denies difficulty urinating, painful urination, burning, frequency, or blood in urine. MUSCULOSKELETAL: Back pain. SKIN: Denies rash or skin lesions. NEUROLOGICAL: Denies altered mental status or loss of consciousness. Denies headache. Denies weakness or paralysis or loss of use of either side. Denies problems with gait or speech. Denies sensory or motor loss. ALL OTHER SYSTEMS REVIEWED AND NEGATIVE. Physical Exam - Vital signs Vitals: Temp Pulse Resp BP Pulse Ox 97.8 F 64 20 130/75 H 95 02/06/17 23:01 02/06/17 23:01 02/06/17 23:01 02/06/17 23:01 02/06/17 23:01 - Notes Notes: General Appearance: Well nourished, alert, cooperative, no acute distress, moderate obvious discomfort. Vitals: reviewed, See vital signs table. Head: no swelling or tenderness to the head Eyes: PERRL, EOMI, Conjuctiva clear Mouth: No decreasd moisture Lungs: No wheezing, No rales, No rhonci, No accessory muscle use, good air exchange bilaterally. Heart: Normal rate, Regular rythm, No murmur, no rub Abdomen: Normal BS, soft, No rigidity, mild upper abdominal tenderness to palpation, No guarding, no rebound, no abdominal masses, no organomegaly Back: Patient has tenderness to palpation over bilateral thoracic paraspinal musculature. She also has some pain to palpation over bilateral lumbar paraspinal musculature. Pain seems to be worse over the thoracic paraspinal muscles. There is no redness or swelling to the back. Extremities: strength 5/5 in all extremities, good pulses in all extremities, no swelling or tenderness in the extremities, no edema. Skin: warm, dry, appropriate color, no rash Neuro: speech clear, oriented x 3, normal affect, responds appropriately to questions. Good strength in bilateral lower extremities. Good strength with plantar and dorsiflexion. Good distal sensation. Normal patellar reflexes bilaterally. Course - Re-evaluation Re-evalutation: 02/07/17 02:33 Patient's back and did improve with the small dose of morphine. Her labs show that she is a bit dehydrated. She has very mild renal insufficiency. I suspect that may be some of her muscle pain could be related to dehydration. Her pain is easily reproducible palpation. All throughout the paraspinal musculature. She does not have any neurologic symptoms. She has no leg weakness or numbness. No upper extremity weakness or numbness. No signs of spinal cord impingement. Patient says that she thinks the bacteria she was told that she had in her bowel was H pylori. I suspect that it could possibly be E. coli since she was placed on metronidazole however patient says this does not sound familiar to her. Currently she has no leukocytosis and no fever and otherwise looks well. Patient will be discharged home by strongly encourage her to return to the ER if she has worsening of her symptoms, severe abdominal pain, worsening back pain, fevers, or feels unwell. Patient agrees with plan and will be discharged home. Patient does have some hyponatremia but looking through her previous labs it appears that her sodium usually runs around 127. Today her sodium is 129. She is therefore not outside her baseline. Dictation of this chart was performed using voice recognition software; therefore, there may be some unintended grammatical errors. - Vital Signs Vital signs: Temp Pulse Resp BP Pulse Ox 97.8 F 64 20 130/75 H 95 02/06/17 23:01 02/06/17 23:01 02/06/17 23:01 02/06/17 23:01 02/06/17 23:01 - Laboratory Result Diagrams: 02/07/17 00:25 02/07/17 00:25 Laboratory results interpreted by me: 02/07/17 02/07/17 00:25 00:25 RDW 17.3 H Sodium 129.1 L Chloride 89 L Creatinine 1.30 H Est GFR ( Amer) 51 L Est GFR (Non-Af Amer) 42 L Direct Bilirubin 0.5 H Discharge - Discharge Clinical Impression: Hyponatremia, Dehydration Back pain Qualifiers: Back pain location: thoracic back pain Chronicity: acute Back pain laterality: bilateral Qualified Code(s): M54.6 - Pain in thoracic spine Diarrhea Qualifiers: Diarrhea type: unspecified type Qualified Code(s): R19.7 - Diarrhea, unspecified Condition: Good Disposition: HOME, SELF-CARE Instructions: Oral Narcotic Medication ([facility]) Additional Instructions: Please drink water as well as diluted Gatorade. Please do not drink purely water as this can cause your sodium to become more low; however, you do need to drink non-caffeinated liquids so that you do not become further dehydrated. Please only take the prescribed pain medicine if your pain is severe. Please follow-up with your doctor in a few days for reevaluation. Do not drive or operate machinery if you take the prescribed pain medicine. Return to the ER immediately if you have worsening pain, fevers, abdominal pain, blood in her stool, or feel unwell. Prescriptions: Hydrocodone/Acetaminophen [Elsinore 5-325 mg Tablet] 1 tab PO Q4 PRN #12 tablet PRN Reason: For Breakthrough Pain Referrals: ALEKSANDER BLAND MD [Primary Care Provider] - 02/09/17
[2017-02-07 00:48] LABS: ABSOLUTE EOSINOPHILS # (AUTO) 0.1 10^3/uL (0.0-0.6); ABSOLUTE LYMPHOCYTES (AUTO) 3.6 10^3/uL (0.5-4.7); ABSOLUTE MONOCYTES (AUTO) 0.8 10^3/uL (0.1-1.4); ABSOLUTE NEUT (AUTO) 4.8 10^3/uL (1.7-8.2); BASOPHILS % (AUTO) 0.3 % (0-2); EOSINOPHILS % (AUTO) 0.8 % (0-6); HEMATOCRIT 42.9 % (36.0-47.0); HEMOGLOBIN 14.7 g/dL (12.0-15.5); HGB HCT DIFFERENCE 1.2; LYMPHOCYTES % (AUTO) 38.4 % (13-45); MEAN CORPUSCULAR HEMOGLOBIN 29.4 pg (27.0-33.4); MEAN CORPUSCULAR HGB CONC 34.3 g/dL (32.0-36.0); MEAN CORPUSCULAR VOLUME 86 fl (80-97); MONOCYTES % (AUTO) 8.8 % (3-13); RED BLOOD COUNT 5.02 10^6/uL (3.72-5.28); RED CELL DISTRIBUTION WIDTH 17.3 % (11.5-14.0); SEGMENTED NEUTROPHILS % (AUTO) 51.7 % (42-78); WHITE BLOOD COUNT 9.3 10^3/uL (4.0-10.5)
[2017-02-07 01:30] LABS: ALANINE AMINOTRANSFERASE 21 U/L (9-52); ALBUMIN 4.2 g/dL (3.5-5.0); ALKALINE PHOSPHATASE 79 U/L (38-126); ANION GAP 10 (5-19); ASPARTATE AMINO TRANSFERASE 16 U/L (14-36); BILIRUBIN,DIRECT 0.5 mg/dL (0.0-0.4); BILIRUBIN,TOTAL 0.7 mg/dL (0.2-1.3); BLOOD UREA NITROGEN 12 mg/dL (7-20); CALCIUM 9.8 mg/dL (8.4-10.2); CARBON DIOXIDE 30 mmol/L (22-30); CHLORIDE 89 mmol/L (98-107); GLUCOSE 101 mg/dL (75-110); LIPASE 104.6 U/L (23-300); POTASSIUM 4.2 mmol/L (3.6-5.0); SODIUM 129.1 mmol/L (137-145); TOTAL PROTEIN 6.9 g/dL (6.3-8.2)
[2017-02-07 02:41] VITALS: BP 170/66
== END 2017-02-07 02:56 | disposition home or self-care (01) ==
LOC: ER 22:53
DX: M54.6 Pain in thoracic spine (principal); E87.1 Hypo-osmolality and hyponatremia; E86.0 Dehydration; M54.2 Cervicalgia; R19.7 Diarrhea, unspecified; I10 Essential (primary) hypertension; J44.9 Chronic obstructive pulmonary disease, unspecified; Z88.6 Allergy status to analgesic agent; Z88.0 Allergy status to penicillin; Z90.49 Acquired absence of other specified parts of digestive tract; Z90.710 Acquired absence of both cervix and uterus
CPT/HCPCS: 99283; 96361; 96374; 36415; 83690; 83735; 85025; 80053; J2270; J7030

== ENCOUNTER 2017-02-09 06:19 | Emergency (ER) | payer MEDICARE, MEDICAID ==
[2017-02-09] MEDS ORDERED: CYCLOBENZAPRINE HCL 10 MG TABLET PO ONE (07:37)
[2017-02-09] MEDS ORDERED: IBUPROFEN 600 MG TABLET PO ONE (07:37)
[2017-02-09 08:02] LABS: ABSOLUTE BASOPHILS # (AUTO) 0.1 10^3/uL (0.0-0.2); ABSOLUTE EOSINOPHILS # (AUTO) 0.2 10^3/uL (0.0-0.6); ABSOLUTE MONOCYTES (AUTO) 0.8 10^3/uL (0.1-1.4); ABSOLUTE NEUT (AUTO) 5.6 10^3/uL (1.7-8.2); BASOPHILS % (AUTO) 0.8 % (0-2); EOSINOPHILS % (AUTO) 1.7 % (0-6); HEMATOCRIT 43.3 % (36.0-47.0); HEMOGLOBIN 14.5 g/dL (12.0-15.5); HGB HCT DIFFERENCE 0.2; LYMPHOCYTES % (AUTO) 37.7 % (13-45); MEAN CORPUSCULAR HEMOGLOBIN 29.2 pg (27.0-33.4); MEAN CORPUSCULAR HGB CONC 33.5 g/dL (32.0-36.0); MEAN CORPUSCULAR VOLUME 87 fl (80-97); MONOCYTES % (AUTO) 7.7 % (3-13); RED BLOOD COUNT 4.97 10^6/uL (3.72-5.28); RED CELL DISTRIBUTION WIDTH 16.7 % (11.5-14.0); SEGMENTED NEUTROPHILS % (AUTO) 52.1 % (42-78); WHITE BLOOD COUNT 10.7 10^3/uL (4.0-10.5)
[2017-02-09 08:13] LABS: APPEARANCE,URINE CLEAR; BILIRUBIN,URINE NEGATIVE (NEGATIVE); GLUCOSE, URINE NEGATIVE (NEGATIVE); KETONES,URINE NEGATIVE (NEGATIVE); LEUKOCYTE ESTERASE,URINE TRACE (NEGATIVE); NITRITE,URINE NEGATIVE (NEGATIVE); PROTEIN,URINE NEGATIVE (NEGATIVE); URINE SPECIFIC GRAVITY 1.004; UROBILINOGEN,URINE NEGATIVE mg/dL (<2.0)
[2017-02-09 08:27] LABS: ALANINE AMINOTRANSFERASE 23 U/L (9-52); ALKALINE PHOSPHATASE 79 U/L (38-126); ANION GAP 8 (5-19); ASPARTATE AMINO TRANSFERASE 14 U/L (14-36); BILIRUBIN,DIRECT 0.4 mg/dL (0.0-0.4); BILIRUBIN,TOTAL 0.4 mg/dL (0.2-1.3); BLOOD UREA NITROGEN 12 mg/dL (7-20); C-REACTIVE PROTEIN 6.2 mg/L (<10.0); CALCIUM 9.5 mg/dL (8.4-10.2); CARBON DIOXIDE 30 mmol/L (22-30); CHLORIDE 92 mmol/L (98-107); CREATININE RESULT 1.39 mg/dL (0.52-1.25); GLUCOSE 99 mg/dL (75-110); POTASSIUM 4.8 mmol/L (3.6-5.0); SODIUM 129.5 mmol/L (137-145); TOTAL PROTEIN 6.5 g/dL (6.3-8.2)
[2017-02-09] MEDS ORDERED: HYDROCODONE/ACETAMINOPHEN 5-325 MG TABLET PO ONE (08:38)
[2017-02-09 08:42] LABS: ERYTHROCYTE SEDIMENTATION RATE 17 mm/hr (0-30)
--- NOTE | 2017-02-09 09:19 | RADIOLOGY REPORT (SQ) ---
EXAM DESCRIPTION: L SPINE WHOLE COMPLETED DATE/TIME: 02/09/2017 9:00 am REASON FOR STUDY: back pain worsening COMPARISON: None. NUMBER OF VIEWS: Five views including obliques. TECHNIQUE: AP, lateral, oblique, and sacral radiographic images acquired of the lumbar spine. LIMITATIONS: None. FINDINGS: MINERALIZATION: Osteopenic SEGMENTATION: Normal. No transitional anatomy. ALIGNMENT: Normal. VERTEBRAE: Maintained height. No fracture or worrisome bone lesion. DISCS: There is disc space loss of height at L4-5 and L5-S1 bilateral POSTERIOR ELEMENTS: Pedicles and facets are intact. No pars defect or posterior arch defects. Mild to moderate facet arthropathy at L4-5 and L5-S1 HARDWARE: Clips right upper quadrant post cholecystectomy PARASPINAL SOFT TISSUES: Normal. PELVIS: Intact as visualized. No fractures or worrisome bone lesions. SI joints intact. OTHER: No other significant finding. IMPRESSION: No acute fracture. Mild degenerative changes lower lumbar spine TECHNICAL DOCUMENTATION: JOB ID: [id number] [employer]- All Rights Reserved
--- NOTE | 2017-02-09 09:20 | RADIOLOGY REPORT (SQ) ---
EXAM DESCRIPTION: T SPINE AP/LAT COMPLETED DATE/TIME: 02/09/2017 9:00 am REASON FOR STUDY: back pain worsening COMPARISON: Lumbar spine films same date NUMBER OF VIEWS: Two views. TECHNIQUE: AP and lateral radiographic images acquired of the thoracic spine. LIMITATIONS: None. FINDINGS: MINERALIZATION: Osteopenic ALIGNMENT: Normal. No scoliosis. VERTEBRAE: No fracture or bone lesion. Maintained height, normal segmentation. DISCS: No significant loss of height or significant narrowing. No large osteophytes. HARDWARE: None in the spine. MEDIASTINUM AND SOFT TISSUES: Normal heart size and aortic contour. No soft tissue abnormality. VISUALIZED LUNG RAJAN: Clear. OTHER: No other significant finding. IMPRESSION: NO SIGNIFICANT RADIOGRAPHIC FINDING IN THE THORACIC SPINE. TECHNICAL DOCUMENTATION: JOB ID: [id number] [employer]- All Rights Reserved
--- NOTE | 2017-02-09 09:28 | ER Document Report ---
ED Neck/Back Problem - General Chief Complaint: Back Pain Stated Complaint: BACK PAIN Time Seen by Provider: 02/09/17 07:26 Mode of Arrival: Ambulatory Information source: Patient Notes: Patient is a 57-year-old female with chronic back pain who presents to the ER today for back pain that is worse since her visit here 2 days ago. Patient was told to come back if worsening symptoms. Patient states that it is her mid and lower back, worse on the right side radiating down the right leg, has a history of a herniated disc, denies any numbness or tingling, denies loss of bladder or bowel function, denies fevers or chills. TRAVEL OUTSIDE OF THE [place] IN LAST 30 DAYS: No - Related Data Allergies/Adverse Reactions: tramadol HCl [From Ultram] Allergy (Mild, Verified 02/09/17 06:27) aspirin [Aspirin] Allergy (Verified 02/09/17 06:27) diclofenac sodium [From Voltaren] Allergy (Verified 02/09/17 06:27) penicillin G [Penicillin G] Allergy (Verified 02/09/17 06:27) Past Medical History - General Information source: Patient - Social History Smoking Status: Current Every Day Smoker Chew tobacco use (# tins/day): No Frequency of alcohol use: None Drug Abuse: None Family History: Hypertension Patient has suicidal ideation: No Patient has homicidal ideation: No - Past Medical History Cardiac Medical History: Reports: Hx Hypertension Pulmonary Medical History: Reports: Hx COPD - Emphesyma Neurological Medical History: Denies: Hx Seizures Renal/ Medical History: Reports: Hx Ovarian Cysts. Denies: Hx Peritoneal Dialysis Musculoskeltal Medical History: Reports Hx Arthritis - RA Psychiatric Medical History: Reports: Hx Anxiety, Hx Bipolar Disorder, Hx Depression Past Surgical History: Reports: Hx Appendectomy, Hx Cholecystectomy, Hx Hysterectomy - Immunizations Immunizations up to date: Yes Hx Diphtheria, Pertussis, Tetanus Vaccination: Yes Review of Systems - Review of Systems Constitutional: No symptoms reported EENT: No symptoms reported Cardiovascular: No symptoms reported Respiratory: No symptoms reported Gastrointestinal: No symptoms reported Genitourinary: No symptoms reported Female Genitourinary: No symptoms reported Musculoskeletal: See HPI Skin: No symptoms reported Hematologic/Lymphatic: No symptoms reported Neurological/Psychological: No symptoms reported Physical Exam - Vital signs Vitals: Temp Pulse Resp BP Pulse Ox 97.6 F 62 18 147/70 H 94 02/09/17 06:24 02/09/17 06:24 02/09/17 06:24 02/09/17 06:24 02/09/17 06:24 - Notes Notes: PHYSICAL EXAMINATION: GENERAL: Appears uncomfortable, but in no acute distress. HEAD: Atraumatic, normocephalic. EYES: Pupils equal round and reactive to light, extraocular movements intact, sclera anicteric, conjunctiva are normal. NECK: Normal range of motion, supple without lymphadenopathy LUNGS: CTAB and equal. No wheezes rales or rhonchi. HEART: Regular rate and rhythm without murmurs ABDOMEN: Soft, no tenderness. No guarding, no rebound BACK: Thoracic and lumbar o vertebral tenderness, normal ROM but with pain GI/: no CVA tenderness EXTREMITIES: Normal range of motion, no pitting edema. No cyanosis. NEUROLOGICAL: Cranial nerves grossly intact. Normal sensory/motor exams. PSYCH: Normal mood, normal affect. SKIN: Warm, Dry, normal turgor, no rashes or lesions noted Course - Re-evaluation Re-evalutation: 02/09/17 09:26 Sed rate and CRP are normal today, patient will be sent home with muscle relaxers and steroid medication to treat muscular back pain, sciatica. X-rays of the thoracic and lumbar spine today are also without acute pathology. - Vital Signs Vital signs: Temp Pulse Resp BP Pulse Ox 97.6 F 62 18 147/70 H 94 02/09/17 06:24 02/09/17 06:24 02/09/17 06:24 02/09/17 06:24 02/09/17 06:24 - Laboratory Result Diagrams: 02/09/17 07:50 02/09/17 07:50 Laboratory results interpreted by me: 02/09/17 02/09/17 02/09/17 07:50 07:50 07:50 WBC 10.7 H RDW 16.7 H Sodium 129.5 L Chloride 92 L Creatinine 1.39 H Est GFR ( Amer) 47 L Est GFR (Non-Af Amer) 39 L Urine Blood SMALL H Ur Leukocyte Esterase TRACE H Discharge - Discharge Clinical Impression: Back pain Qualifiers: Back pain location: low back pain Chronicity: unspecified Back pain laterality : bilateral Sciatica presence: with sciatica Sciatica laterality: sciatica of right side Qualified Code(s): M54.41 - Lumbago with sciatica, right side Condition: Stable Disposition: HOME, SELF-CARE Additional Instructions: Return immediately for any new or worsening symptoms. Follow up with primary care provider, call tomorrow to make followup appointment. Prescriptions: Methocarbamol [Robaxin 500 mg Tablet] 1,000 mg PO BID PRN #40 tablet PRN Reason: Prednisone 60 mg PO DAILY #15 tablet
[2017-02-09] MEDS ORDERED: METHOCARBAMOL 500 MG TABLET PO ONE (09:36)
[2017-02-09 10:06] VITALS: BP 140/75
== END 2017-02-09 10:06 | disposition home or self-care (01) ==
LOC: ER 06:19
DX: M54.41 Lumbago with sciatica, right side (principal); M54.9 Dorsalgia, unspecified; G89.29 Other chronic pain; F17.200 Nicotine dependence, unspecified, uncomplicated
CPT/HCPCS: 99283; 36415; 85025; 85652; 86140; 80053; 81001; 72110; 72070; A9270 ×3

== ENCOUNTER 2017-02-21 10:09 | Inpatient (IN) | payer MEDICARE, MEDICAID ==
--- NOTE | 2017-02-21 10:38 | ER Document Report ---
ED Medical Screen (RME) - General Chief Complaint: Blood Pressure Problem Stated Complaint: BLOOD PRESSURE PROBLEMS Time Seen by Provider: 02/21/17 10:37 Notes: Patient reports that she has been feeling lightheaded and dizzy. She also states that her blood pressures been elevated. She states she feels similar to when she had low sodium and potassium previously. Patient does have a recent ICU admission for low sodium secondary to polydipsia. TRAVEL OUTSIDE OF THE [place] IN LAST 30 DAYS: No - Related Data Allergies/Adverse Reactions: tramadol HCl [From Ultram] Allergy (Mild, Verified 02/21/17 10:28) aspirin [Aspirin] Allergy (Verified 02/21/17 10:28) diclofenac sodium [From Voltaren] Allergy (Verified 02/21/17 10:28) penicillin G [Penicillin G] Allergy (Verified 02/21/17 10:28) Home Medications: Current Home Medications Lisinopril/Hydrochlorothiazide [Lisinopril-Hctz 20-25 mg Tab] 1 each PO DAILY [History] Metoprolol Tartrate [Lopressor] 50 mg PO DAILY 02/21/17 [History] Paroxetine HCl [Paxil 20 mg Tablet] 20 mg PO DAILY 02/21/17 [History] Prochlorperazine Maleate 10 mg PO DAILY PRN 02/21/17 [History] Past Medical History - Past Medical History Cardiac Medical History: Reports: Hx Hypertension Pulmonary Medical History: Reports: Hx COPD - Emphesyma Neurological Medical History: Denies: Hx Seizures Renal/ Medical History: Reports: Hx Ovarian Cysts. Denies: Hx Peritoneal Dialysis Musculoskeltal Medical History: Reports Hx Arthritis - RA Psychiatric Medical History: Reports: Hx Anxiety, Hx Bipolar Disorder, Hx Depression Past Surgical History: Reports: Hx Appendectomy, Hx Cholecystectomy, Hx Hysterectomy - Immunizations Immunizations up to date: Yes Hx Diphtheria, Pertussis, Tetanus Vaccination: Yes Physical Exam - Vital signs Vitals: Temp Pulse Resp BP Pulse Ox 98.4 F 65 16 165/92 H 96 02/21/17 10:26 02/21/17 10:26 02/21/17 10:26 02/21/17 10:26 02/21/17 10:26 Course - Vital Signs Vital signs: Temp Pulse Resp BP Pulse Ox 98.4 F 65 16 165/92 H 96 02/21/17 10:26 02/21/17 10:26 02/21/17 10:26 02/21/17 10:26 02/21/17 10:26
[2017-02-21] MEDS ORDERED: METOCLOPRAMIDE HCL INJ/PF 10 MG/2 ML SDV IV ONE (11:12)
--- NOTE | 2017-02-21 11:14 | ER Document Report ---
ED General - General Chief Complaint: Blood Pressure Problem Stated Complaint: BLOOD PRESSURE PROBLEMS Time Seen by Provider: 02/21/17 10:37 Mode of Arrival: Ambulatory Information source: Patient Notes: 57-year-old female history of multiple vomiting episodes in the past presents with complaints of vomiting multiple times over the past few days, she believes that her body is cramping and it is secondary to low potassium and low sodium. Patient is on Prozac no other medications TRAVEL OUTSIDE OF THE [place] IN LAST 30 DAYS: No - HPI Onset: Just prior to arrival Onset/Duration: Sudden Quality of pain: Cramping Severity: Mild Pain Level: 1 Associated symptoms: Nausea, Vomiting Exacerbated by: Denies Relieved by: Denies Similar symptoms previously: Yes Recently seen / treated by doctor: Yes - Related Data Allergies/Adverse Reactions: tramadol HCl [From Ultram] Allergy (Mild, Verified 02/21/17 10:28) aspirin [Aspirin] Allergy (Verified 02/21/17 10:28) diclofenac sodium [From Voltaren] Allergy (Verified 02/21/17 10:28) penicillin G [Penicillin G] Allergy (Verified 02/21/17 10:28) Home Medications: Current Home Medications Lisinopril/Hydrochlorothiazide [Lisinopril-Hctz 20-25 mg Tab] 1 each PO DAILY [History] Metoprolol Tartrate [Lopressor] 50 mg PO DAILY 02/21/17 [History] Paroxetine HCl [Paxil 20 mg Tablet] 20 mg PO DAILY 02/21/17 [History] Prochlorperazine Maleate 10 mg PO DAILY PRN 02/21/17 [History] Past Medical History - Social History Smoking Status: Never Smoker Cigarette use (# per day): No Chew tobacco use (# tins/day): No Smoking Education Provided: No Family History: Hypertension Patient has suicidal ideation: No - Past Medical History Cardiac Medical History: Reports: Hx Hypertension Pulmonary Medical History: Reports: Hx COPD - Emphesyma Neurological Medical History: Denies: Hx Seizures Renal/ Medical History: Reports: Hx Ovarian Cysts. Denies: Hx Peritoneal Dialysis Musculoskeltal Medical History: Reports Hx Arthritis - RA Psychiatric Medical History: Reports: Hx Anxiety, Hx Bipolar Disorder, Hx Depression Past Surgical History: Reports: Hx Appendectomy, Hx Cholecystectomy, Hx Hysterectomy - Immunizations Immunizations up to date: Yes Hx Diphtheria, Pertussis, Tetanus Vaccination: Yes Review of Systems - Review of Systems Notes: REVIEW OF SYSTEMS: CONSTITUTIONAL : Denies fever, chills, or sweats. Denies recent illness. EENT: Denies eye, ear, throat, or mouth pain or symptoms. Denies nasal or sinus congestion or discharge. Denies throat, tongue, or mouth swelling or difficulty swallowing. CARDIOVASCULAR: Denies chest pain. Denies palpitations or racing or irregular heart beat. Denies ankle edema. RESPIRATORY: Denies cough, cold, or chest congestion. Denies shortness of breath, difficulty breathing, or wheezing. GASTROINTESTINAL: nausea vomiting GENITOURINARY: Denies difficulty urinating, painful urination, burning, frequency, blood in urine, or discharge. FEMALE GENITOURINARY: Denies vaginal bleeding, heavy or abnormal periods, irregular periods. Denies vaginal discharge or odor. MUSCULOSKELETAL: body aches SKIN: Denies rash, lesions or sores. HEMATOLOGIC : Denies easy bruising or bleeding. LYMPHATIC: Denies swollen, enlarged glands. NEUROLOGICAL: Denies confusion or altered mental status. Denies passing out or loss of consciousness. Denies dizziness or lightheadedness. Denies headache. Denies weakness or paralysis or loss of use of either side. Denies problems with gait or speech. Denies sensory loss, numbness, or tingling. Denies seizures. PSYCHIATRIC: Denies anxiety or stress. Denies depression, suicidal ideation, or homicidal ideation. ALL OTHER SYSTEMS REVIEWED AND NEGATIVE. PHYSICAL EXAMINATION: GENERAL: Well-appearing, well-nourished and in no acute distress. HEAD: Atraumatic, normocephalic. EYES: Pupils equal round and reactive to light, extraocular movements intact, conjunctiva are normal. ENT: Nares patent, oropharynx clear without exudates. Moist mucous membranes. NECK: Normal range of motion, supple without lymphadenopathy LUNGS: Breath sounds clear to auscultation bilaterally and equal. No wheezes rales or rhonchi. HEART: Regular rate and rhythm without murmurs ABDOMEN: Soft, nontender, nondistended abdomen. No guarding, no rebound. No masses appreciated. Female : deferred Musculoskeletal: Normal range of motion, no pitting or edema. No cyanosis. NEUROLOGICAL: Cranial nerves grossly intact. Normal speech, normal gait. Normal sensory, motor exams PSYCH: Normal mood, normal affect. SKIN: Warm, Dry, normal turgor, no rashes or lesions noted. Dictation was performed using [employer] voice recognition software Physical Exam - Vital signs Vitals: Temp Pulse Resp BP Pulse Ox 98.4 F 65 16 165/92 H 96 02/21/17 10:26 02/21/17 10:26 02/21/17 10:02/21/17 10:26 02/21/17 10:26 Course - Re-evaluation Re-evalutation: 02/21/17 11:14 Labwork pending to rule out any intra-abdominal source of vomiting as well as electrolyte imbalance 02/21/17 12:16 Patient is noted to have a sodium of 110, multiple previous histories of polydipsia hyponatremia 02/21/17 12:22 Patient will be admitted to Dr. Carroll fluid restrictions - Vital Signs Vital signs: Temp Pulse Resp BP Pulse Ox 98.4 F 65 16 165/92 H 96 02/21/17 10:26 02/21/17 10:26 02/21/17 10:02/21/17 10:26 02/21/17 10:26 - Laboratory Result Diagrams: 02/21/17 11:31 02/21/17 11:31 Laboratory results interpreted by me: 02/21/17 02/21/17 11:31 11:31 WBC 13.4 H RDW 15.6 H Absolute Neutrophils 9.9 H Sodium 110.3 L* Chloride 74 L Creatinine 1.44 H Est GFR ( Amer) 45 L Est GFR (Non-Af Amer) 37 L Magnesium 1.3 L Direct Bilirubin 0.5 H Total Protein 6.2 L Critical Care Note - Critical Care Note Total time excluding time spent on procedures (mins): 34 Comments: minutes of critical care time spent in direct contact evaluating and reevaluating the patient, treating symptoms, reviewing labs and studies and speaking with family and consultants excluding any procedures Discharge - Discharge Clinical Impression: Hyponatremia with extracellular fluid depletion Nausea & vomiting Qualifiers: Vomiting type: unspecified Vomiting Intractability: non-intractable Qualified Code(s): R11.2 - Nausea with vomiting, unspecified Condition: Serious Disposition: ADMITTED INPATIENT Admitting Provider: Hospitalist Unit Admitted: Telemetry Referrals: JANAY GRULLON FNP-C [Primary Care Provider] - Follow up as needed
[2017-02-21 11:44] LABS: ABSOLUTE EOSINOPHILS # (AUTO) 0.2 10^3/uL (0.0-0.6); ABSOLUTE LYMPHOCYTES (AUTO) 2.4 10^3/uL (0.5-4.7); ABSOLUTE NEUT (AUTO) 9.9 10^3/uL (1.7-8.2); BASOPHILS % (AUTO) 0.3 % (0-2); EOSINOPHILS % (AUTO) 1.2 % (0-6); HEMATOCRIT 38.9 % (36.0-47.0); HEMOGLOBIN 13.9 g/dL (12.0-15.5); HGB HCT DIFFERENCE 2.8; MEAN CORPUSCULAR HGB CONC 35.8 g/dL (32.0-36.0); MEAN CORPUSCULAR VOLUME 84 fl (80-97); MONOCYTES % (AUTO) 7.1 % (3-13); RED BLOOD COUNT 4.65 10^6/uL (3.72-5.28); RED CELL DISTRIBUTION WIDTH 15.6 % (11.5-14.0); SEGMENTED NEUTROPHILS % (AUTO) 73.4 % (42-78); WHITE BLOOD COUNT 13.4 10^3/uL (4.0-10.5)
[2017-02-21 12:02] LABS: ALANINE AMINOTRANSFERASE 16 U/L (9-52); ALBUMIN 3.6 g/dL (3.5-5.0); ALKALINE PHOSPHATASE 82 U/L (38-126); ASPARTATE AMINO TRANSFERASE 18 U/L (14-36); BILIRUBIN,DIRECT 0.5 mg/dL (0.0-0.4); BILIRUBIN,TOTAL 0.8 mg/dL (0.2-1.3); BLOOD UREA NITROGEN 16 mg/dL (7-20); CALCIUM 9.1 mg/dL (8.4-10.2); CARBON DIOXIDE 27 mmol/L (22-30); CHLORIDE 74 mmol/L (98-107); CREATININE RESULT 1.44 mg/dL (0.52-1.25); GLUCOSE 101 mg/dL (75-110); LIPASE 71.6 U/L (23-300); POTASSIUM 4.7 mmol/L (3.6-5.0); TOTAL PROTEIN 6.2 g/dL (6.3-8.2)
[2017-02-21 12:04] LABS: ANION GAP 9 (5-19)
[2017-02-21 12:17] LABS: MAGNESIUM 1.3 mg/dL (1.6-2.3); SODIUM 110.3 mmol/L (137-145)
[2017-02-21] MEDS ORDERED: ONDANSETRON 4 MG TAB.RAPDIS PO PRN (13:06)
[2017-02-21] MEDS ORDERED: NORMAL SALINE 1000 ML 1,000 ML IV PRN (13:11)
[2017-02-21] MEDS ORDERED: AMLODIPINE BESYLATE 10 MG TABLET PO ONE (13:30)
[2017-02-21] MEDS: ACETAMINOPHEN 325 MG TABLET PO PRN (13:46)
[2017-02-21 13:48] LABS: ANION GAP 10 (5-19); BLOOD UREA NITROGEN 14 mg/dL (7-20); CARBON DIOXIDE 27 mmol/L (22-30); CHLORIDE 75 mmol/L (98-107); CREATININE RESULT 1.38 mg/dL (0.52-1.25); GLUCOSE 94 mg/dL (75-110); POTASSIUM 3.8 mmol/L (3.6-5.0)
[2017-02-21] MEDS ORDERED: HYDROCODONE/ACETAMINOPHEN 5-325 MG 6 TAB/DSPK PO PRN (13:51)
--- NOTE | 2017-02-21 13:53 | PDOC H&P ---
History of Present Illness Admission Date/PCP: SONAM HUBER Patient complains of: Nausea and Vomiting History of Present Illness: NANNETTE SHAFFER is a 57 year old female who presents with complaint of nausea and vomiting which started 1-2 days ago. Pt states that she has been feeling very weak. Pt states that she has happened before. Pt states that she is also having back pain. Past Medical History Cardiac Medical History: Reports: Hypertension Pulmonary Medical History: Reports: Chronic Obstructive Pulmonary Disease (COPD ) - Emphesyma Neurological Medical History: Denies: Seizures Musculoskeltal Medical History: Reports: Arthritis - RA Psychiatric Medical History: Reports: Bipolar Disorder, Depression Past Surgical History Past Surgical History: Reports: Appendectomy, Cholecystectomy, Hysterectomy Social History Smoking Status: Never Smoker Frequency of Alcohol Use: None Hx Recreational Drug Use: No Hx Prescription Drug Abuse: No Family History Family History: Hypertension Parental Family History Reviewed: Yes Children Family History Reviewed: Yes Sibling(s) Family History Reviewed.: Yes Medication/Allergy Home Medications: Lisinopril/Hydrochlorothiazide [Lisinopril-Hctz 20-25 mg Tab] 1 each PO DAILY Metoprolol Tartrate [Lopressor] 50 mg PO DAILY 02/21/17 Paroxetine HCl [Paxil 20 mg Tablet] 20 mg PO DAILY 02/21/17 Prochlorperazine Maleate 10 mg PO DAILYP PRN 02/21/17 Allergies/Adverse Reactions: tramadol HCl [From Ultram] Allergy (Mild, Verified 02/21/17 10:28) aspirin [Aspirin] Allergy (Verified 02/21/17 10:28) diclofenac sodium [From Voltaren] Allergy (Verified 02/21/17 10:28) penicillin G [Penicillin G] Allergy (Verified 02/21/17 10:28) Review of Systems Constitutional: ABSENT: chills, fever(s), headache(s), weight gain, weight loss Eyes: ABSENT: visual disturbances Ears: ABSENT: hearing changes Cardiovascular: ABSENT: chest pain, dyspnea on exertion, edema, orthropnea, palpitations Respiratory: ABSENT: cough, hemoptysis Gastrointestinal: ABSENT: abdominal pain, constipation, diarrhea, hematemesis, hematochezia, nausea, vomiting Genitourinary: ABSENT: dysuria, hematuria Musculoskeletal: ABSENT: joint swelling Neurological: ABSENT: abnormal gait, abnormal speech, confusion, dizziness, focal weakness, syncope Physical Exam Vital Signs: Temp Pulse Resp BP Pulse Ox 98.4 F 65 16 165/92 H 96 02/21/17 10:26 02/21/17 10:26 02/21/17 10:26 02/21/17 10:26 02/21/17 10:26 Intake & Output 02/20/17 02/21/17 02/22/17 06:59 06:59 06:59 Weight 56.3 kg General appearance: PRESENT: no acute distress, well-developed, well-nourished Head exam: PRESENT: atraumatic, normocephalic Eye exam: PRESENT: conjunctiva pink, EOMI. ABSENT: scleral icterus Ear exam: PRESENT: normal external ear exam Mouth exam: PRESENT: moist, tongue midline Neck exam: ABSENT: carotid bruit, JVD, lymphadenopathy, thyromegaly Respiratory exam: PRESENT: clear to auscultation benito. ABSENT: rales, rhonchi, wheezes Cardiovascular exam: PRESENT: RRR. ABSENT: diastolic murmur, rubs, systolic murmur Pulses: PRESENT: normal dorsalis pedis pul Vascular exam: PRESENT: normal capillary refill GI/Abdominal exam: PRESENT: normal bowel sounds, soft. ABSENT: distended, guarding, mass, organolmegaly, rebound, tenderness Rectal exam: PRESENT: deferred Extremities exam: PRESENT: full ROM. ABSENT: calf tenderness, clubbing, pedal edema Musculoskeletal exam: PRESENT: other - L4-L5 tenderness to tenderness to palpation Neurological exam: PRESENT: alert, awake, oriented to person, oriented to place , oriented to time, oriented to situation, CN II-XII grossly intact. ABSENT: motor sensory deficit Skin exam: PRESENT: dry, warm Results Laboratory Results: 02/21/17 11:31 02/21/17 11:31 02/21/17 02/21/17 11:31 11:31 WBC 13.4 H RBC 4.65 Hgb 13.9 Hct 38.9 MCV 84 MCH 30.0 MCHC 35.8 RDW 15.6 H Plt Count 223 Seg Neutrophils % 73.4 Lymphocytes % 18.0 Monocytes % 7.1 Eosinophils % 1.2 Basophils % 0.3 Absolute Neutrophils 9.9 H Absolute Lymphocytes 2.4 Absolute Monocytes 1.0 Absolute Eosinophils 0.2 Absolute Basophils 0.0 Sodium 110.3 L* Potassium 4.7 Chloride 74 L Carbon Dioxide 27 Anion Gap 9 BUN 16 Creatinine 1.44 H Est GFR ( Amer) 45 L Est GFR (Non-Af Amer) 37 L Glucose 101 Calcium 9.1 Magnesium 1.3 L Total Bilirubin 0.8 AST 18 ALT 16 Alkaline Phosphatase 82 Total Protein 6.2 L Albumin 3.6 Lipase 71.6 Assessment & Plan - Diagnosis (1) Hyponatremia Is this a current diagnosis for this admission?: Yes Plan: Symptomatic Hyponatremia Secondary to Medication HCTZ: Will discontinue HCTZ. Will continue IVF. Will check Na Q6 hours to make sure it does not correct more than 10-12mmol/day. (2) Nausea & vomiting Qualifiers: Vomiting type: unspecified Vomiting Intractability: non-intractable Qualified Code(s): R11.2 - Nausea with vomiting, unspecified Is this a current diagnosis for this admission?: Yes Plan: Secondary to Symptomatic Hyponatremia: Will give IVFs. Zofran PRN (3) Hypertension Qualifiers: Hypertension type: essential hypertension Qualified Code(s): I10 - Essential (primary) hypertension Is this a current diagnosis for this admission?: Yes Plan: Will add Norvasc 10 mg PO Qdaily. Metoprolol and Lisinopril. (4) Back pain at L4-L5 level Is this a current diagnosis for this admission?: Yes Plan: Chronic Back Pain: Will write of Lidoderm patch and Ultram. Pt will need to follow up with outpatient physician. (5) Tobacco abuse Is this a current diagnosis for this admission?: Yes Plan: Encourage discontinuation of tobacco abuse. Pt states that she is trying to cut back. (6) DVT prophylaxis Is this a current diagnosis for this admission?: Yes Plan: SCDs - Time Time Spent: 30 to 50 Minutes Anticipated discharge: Home
[2017-02-21 14:09] LABS: SODIUM 111.7 mmol/L (137-145)
[2017-02-21] MEDS: LIDOCAINE 5% (700 MG) TRANSDERMAL ADH..PATCH TP SCH (14:27)
[2017-02-21 16:42] LABS: BLOOD UREA NITROGEN 16 mg/dL (7-20); CALCIUM 9.2 mg/dL (8.4-10.2); CARBON DIOXIDE 29 mmol/L (22-30); CHLORIDE 75 mmol/L (98-107); GLUCOSE 97 mg/dL (75-110); POTASSIUM 4.2 mmol/L (3.6-5.0)
[2017-02-21 16:44] LABS: ANION GAP 11 (5-19)
[2017-02-21 16:52] LABS: SODIUM 115.4 mmol/L (137-145)
[2017-02-21] MEDS: LANSOPRAZOLE 30 MG TAB.RAP.DR PO SCH (17:07)
[2017-02-21] MEDS ORDERED: MAG HYDROX/AL HYDROX/SIMETH SUSP 30 ML UDCUP ONE (17:10)
[2017-02-21] MEDS ORDERED: MAG HYDROX/AL HYDROX/SIMETH SUSP 30 ML UDCUP PO PRN (17:23)
--- NOTE | 2017-02-21 17:35 | RADIOLOGY REPORT (SQ) ---
EXAM DESCRIPTION: KUB/ABDOMEN (SINGLE VIEW) COMPLETED DATE/TIME: 02/21/2017 5:22 pm REASON FOR STUDY: abd pain COMPARISON: None. NUMBER OF VIEWS: One view. TECHNIQUE: Supine radiographic image of the abdomen acquired. LIMITATIONS: None. FINDINGS: BOWEL GAS PATTERN: Normal bowel gas pattern. No dilated loops. CALCIFICATIONS: No suspicious calcifications. SOFT TISSUES: No gross mass or suggestion of organomegaly. HARDWARE: Surgical clips in the gallbladder fossa. BONES: No acute fracture. No worrisome bone lesions. OTHER: No other significant finding. IMPRESSION: NO RADIOGRAPHIC EVIDENCE FOR ACUTE ABDOMINAL DISEASE. TECHNICAL DOCUMENTATION: JOB ID: [id number] [employer]- All Rights Reserved
--- NOTE | 2017-02-21 17:37 | RADIOLOGY REPORT (SQ) ---
EXAM DESCRIPTION: L SPINE WHOLE COMPLETED DATE/TIME: 02/21/2017 5:22 pm REASON FOR STUDY: back pain COMPARISON: 02/09/2017 NUMBER OF VIEWS: Five views including obliques. TECHNIQUE: AP, lateral, oblique, and sacral radiographic images acquired of the lumbar spine. LIMITATIONS: None. FINDINGS: MINERALIZATION: Normal. SEGMENTATION: Normal. No transitional anatomy. ALIGNMENT: Normal. VERTEBRAE: Maintained height. No fracture or worrisome bone lesion. DISCS: There is minimal narrowing of the L4-5 and L5-S1 disc spaces. POSTERIOR ELEMENTS: There is mild hypertrophic facet change at L4-5 and L5-S1. HARDWARE: None in the spine. PARASPINAL SOFT TISSUES: Normal. PELVIS: Intact as visualized. No fractures or worrisome bone lesions. SI joints intact. OTHER: No other significant finding. IMPRESSION: Mild degenerative disc changes facet arthropathy as described. No acute abnormality TECHNICAL DOCUMENTATION: JOB ID: [id number] [employer]- All Rights Reserved
[2017-02-21 20:49] LABS: ANION GAP 8 (5-19); BLOOD UREA NITROGEN 15 mg/dL (7-20); CALCIUM 8.9 mg/dL (8.4-10.2); CARBON DIOXIDE 29 mmol/L (22-30); CHLORIDE 78 mmol/L (98-107); CREATININE RESULT 1.43 mg/dL (0.52-1.25); GLUCOSE 107 mg/dL (75-110)
[2017-02-21 20:54] LABS: SODIUM 114.7 mmol/L (137-145)
[2017-02-22 00:46] LABS: ANION GAP 9 (5-19); BLOOD UREA NITROGEN 14 mg/dL (7-20); CALCIUM 8.9 mg/dL (8.4-10.2); CARBON DIOXIDE 27 mmol/L (22-30); CHLORIDE 80 mmol/L (98-107); CREATININE RESULT 1.24 mg/dL (0.52-1.25); GLUCOSE 110 mg/dL (75-110); POTASSIUM 4.1 mmol/L (3.6-5.0)
[2017-02-22 00:52] LABS: SODIUM 116.1 mmol/L (137-145)
[2017-02-22 04:50] LABS: ABSOLUTE EOSINOPHILS # (AUTO) 0.1 10^3/uL (0.0-0.6); ABSOLUTE LYMPHOCYTES (AUTO) 2.6 10^3/uL (0.5-4.7); ABSOLUTE MONOCYTES (AUTO) 0.7 10^3/uL (0.1-1.4); BASOPHILS % (AUTO) 0.4 % (0-2); EOSINOPHILS % (AUTO) 0.8 % (0-6); HEMATOCRIT 37.1 % (36.0-47.0); HGB HCT DIFFERENCE 1.9; LYMPHOCYTES % (AUTO) 24.6 % (13-45); MEAN CORPUSCULAR HEMOGLOBIN 29.8 pg (27.0-33.4); MEAN CORPUSCULAR HGB CONC 35.2 g/dL (32.0-36.0); MEAN CORPUSCULAR VOLUME 85 fl (80-97); MONOCYTES % (AUTO) 6.8 % (3-13); RED BLOOD COUNT 4.38 10^6/uL (3.72-5.28); RED CELL DISTRIBUTION WIDTH 15.6 % (11.5-14.0); SEGMENTED NEUTROPHILS % (AUTO) 67.4 % (42-78); WHITE BLOOD COUNT 10.4 10^3/uL (4.0-10.5)
[2017-02-22] MEDS: LANSOPRAZOLE 30 MG TAB.RAP.DR PO SCH ×2 (05:36→18:02)
[2017-02-22 05:44] LABS: BLOOD UREA NITROGEN 14 mg/dL (7-20); CALCIUM 9.2 mg/dL (8.4-10.2); CARBON DIOXIDE 28 mmol/L (22-30); CHLORIDE 82 mmol/L (98-107); CREATININE RESULT 1.14 mg/dL (0.52-1.25); GLUCOSE 97 mg/dL (75-110); POTASSIUM 4.4 mmol/L (3.6-5.0)
[2017-02-22 05:51] LABS: ANION GAP 8 (5-19)
[2017-02-22 05:57] LABS: SODIUM 117.8 mmol/L (137-145)
--- NOTE | 2017-02-22 09:21 | PDOC PROGRESS REPORT ---
Subjective Progress Note for:: 02/22/17 Subjective:: Pt states that she is still having nausea. Pt states that her weakness is improving. Nursing states that pt has done well overnight. Physical Exam Vital Signs: Temp Pulse Resp BP Pulse Ox 98.6 F 63 19 117/57 L 93 02/22/17 08:14 02/22/17 08:14 02/22/17 08:14 02/22/17 08:14 02/22/17 08:14 Intake & Output 02/21/17 02/22/17 02/23/17 06:59 06:59 06:59 Intake Total 940 Output Total 300 Balance 640 Weight 56.1 kg General appearance: PRESENT: no acute distress, well-developed, well-nourished Head exam: PRESENT: atraumatic, normocephalic Eye exam: PRESENT: conjunctiva pink, EOMI. ABSENT: scleral icterus Ear exam: PRESENT: normal external ear exam Mouth exam: PRESENT: moist, tongue midline Neck exam: ABSENT: carotid bruit, JVD, lymphadenopathy, thyromegaly Respiratory exam: PRESENT: clear to auscultation benito. ABSENT: rales, rhonchi, wheezes Cardiovascular exam: PRESENT: RRR. ABSENT: diastolic murmur, rubs, systolic murmur Pulses: PRESENT: normal dorsalis pedis pul GI/Abdominal exam: PRESENT: normal bowel sounds, soft. ABSENT: distended, guarding, mass, organolmegaly, rebound, tenderness Rectal exam: PRESENT: deferred Extremities exam: PRESENT: full ROM. ABSENT: calf tenderness, clubbing, pedal edema Neurological exam: PRESENT: alert, awake, oriented to person, oriented to place , oriented to time, oriented to situation, CN II-XII grossly intact. ABSENT: motor sensory deficit Psychiatric exam: PRESENT: appropriate affect, normal mood. ABSENT: homicidal ideation, suicidal ideation Skin exam: PRESENT: dry, intact, warm. ABSENT: cyanosis, rash Results Laboratory Results: 02/22/17 04:22 02/21/17 02/21/17 02/21/17 13:28 16:05 20:28 WBC RBC Hgb Hct MCV MCH MCHC RDW Plt Count Seg Neutrophils % Lymphocytes % Monocytes % Eosinophils % Basophils % Absolute Neutrophils Absolute Lymphocytes Absolute Monocytes Absolute Eosinophils Absolute Basophils Sodium 111.7 L* 115.4 L* 114.7 L* Potassium 3.8 4.2 4.0 Chloride 75 L 75 L 78 L Carbon Dioxide 27 29 29 Anion Gap 10 11 8 BUN 14 16 15 Creatinine 1.38 H 1.60 H 1.43 H Est GFR ( Amer) 47 L 40 L 45 L Est GFR (Non-Af Amer) 39 L 33 L 38 L Glucose 94 97 107 Calcium 9.0 9.2 8.9 Urine Osmolality 02/22/17 02/22/17 02/22/17 00:20 04:22 04:22 WBC 10.4 RBC 4.38 Hgb 13.0 Hct 37.1 MCV 85 MCH 29.8 MCHC 35.2 RDW 15.6 H Plt Count 203 Seg Neutrophils % 67.4 Lymphocytes % 24.6 Monocytes % 6.8 Eosinophils % 0.8 Basophils % 0.4 Absolute Neutrophils 7.0 Absolute Lymphocytes 2.6 Absolute Monocytes 0.7 Absolute Eosinophils 0.1 Absolute Basophils 0.0 Sodium 116.1 L* 117.8 L* Potassium 4.1 4.4 Chloride 80 L 82 L Carbon Dioxide 27 28 Anion Gap 9 8 BUN 14 14 Creatinine 1.24 1.14 Est GFR ( Amer) 54 L 59 L Est GFR (Non-Af Amer) 44 L 49 L Glucose 110 97 Calcium 8.9 9.2 Urine Osmolality 02/22/17 04:27 WBC RBC Hgb Hct MCV MCH MCHC RDW Plt Count Seg Neutrophils % Lymphocytes % Monocytes % Eosinophils % Basophils % Absolute Neutrophils Absolute Lymphocytes Absolute Monocytes Absolute Eosinophils Absolute Basophils Sodium Potassium Chloride Carbon Dioxide Anion Gap BUN Creatinine Est GFR ( Amer) Est GFR (Non-Af Amer) Glucose Calcium Urine Osmolality 162 L Impressions: KUB X-Ray 02/21/17 00:00 IMPRESSION: NO RADIOGRAPHIC EVIDENCE FOR ACUTE ABDOMINAL DISEASE. Lumbar Spine X-Ray 02/21/17 00:00 IMPRESSION: Mild degenerative disc changes facet arthropathy as described. No acute abnormality Assessment & Plan - Diagnosis (1) Hyponatremia Is this a current diagnosis for this admission?: Yes Plan: Symptomatic Hyponatremia Secondary to Medication HCTZ: Pt sodium improving. IVF stopped last night. Will restart this morning. New labs pending. (2) Nausea & vomiting Qualifiers: Vomiting type: unspecified Vomiting Intractability: non-intractable Qualified Code(s): R11.2 - Nausea with vomiting, unspecified Is this a current diagnosis for this admission?: Yes Plan: Secondary to Symptomatic Hyponatremia: Improving. Will restart IVFs. William PRN (3) Hypertension Qualifiers: Hypertension type: essential hypertension Qualified Code(s): I10 - Essential (primary) hypertension Is this a current diagnosis for this admission?: Yes Plan: Will continue Norvasc, Metoprolol, and Lisinopril. (4) Back pain at L4-L5 level Is this a current diagnosis for this admission?: Yes Plan: Chronic Back Pain: Will continue Lidoderm patch and Hydrocodone. Pt will need to follow up with outpatient physician. (5) Tobacco abuse Is this a current diagnosis for this admission?: Yes Plan: Encourage discontinuation of tobacco abuse. Pt states that she is trying to cut back. (6) DVT prophylaxis Is this a current diagnosis for this admission?: Yes Plan: SCDs - Time Time Spent with patient: 15-24 minutes
[2017-02-22 11:35] LABS: ANION GAP 10 (5-19); BLOOD UREA NITROGEN 13 mg/dL (7-20); CALCIUM 9.7 mg/dL (8.4-10.2); CARBON DIOXIDE 28 mmol/L (22-30); CHLORIDE 81 mmol/L (98-107); GLUCOSE 104 mg/dL (75-110); POTASSIUM 4.8 mmol/L (3.6-5.0)
[2017-02-22 11:38] LABS: SODIUM 118.8 mmol/L (137-145)
[2017-02-22] MEDS: PAROXETINE HCL 20 MG TABLET PO SCH (11:51)
[2017-02-22] MEDS: LISINOPRIL 10 MG TABLET PO SCH (11:52)
[2017-02-22] MEDS: METOPROLOL TARTRATE 50 MG TABLET PO SCH (11:53)
[2017-02-22] MEDS: AMLODIPINE BESYLATE 10 MG TABLET PO SCH (11:53)
[2017-02-22 13:51] LABS: BLOOD UREA NITROGEN 12 mg/dL (7-20); CALCIUM 9.2 mg/dL (8.4-10.2); CARBON DIOXIDE 29 mmol/L (22-30); CHLORIDE 81 mmol/L (98-107); CREATININE RESULT 1.03 mg/dL (0.52-1.25); GLUCOSE 120 mg/dL (75-110); POTASSIUM 4.6 mmol/L (3.6-5.0)
[2017-02-22 13:53] LABS: ANION GAP 8 (5-19)
[2017-02-22] MEDS: LIDOCAINE 5% (700 MG) TRANSDERMAL ADH..PATCH TP SCH (15:33)
[2017-02-22 17:42] LABS: BLOOD UREA NITROGEN 15 mg/dL (7-20); CARBON DIOXIDE 30 mmol/L (22-30); CHLORIDE 81 mmol/L (98-107); CREATININE RESULT 1.09 mg/dL (0.52-1.25); GLUCOSE 118 mg/dL (75-110); POTASSIUM 4.6 mmol/L (3.6-5.0)
[2017-02-22 17:49] LABS: ANION GAP 7 (5-19)
[2017-02-22 17:51] LABS: SODIUM 117.8 mmol/L (137-145)
[2017-02-22] MEDS ORDERED: NICOTINE 21 MG/24 HR PATCH.TD24 TD PRN (22:39)
[2017-02-23 00:25] LABS: ANION GAP 10 (5-19); BLOOD UREA NITROGEN 14 mg/dL (7-20); CARBON DIOXIDE 30 mmol/L (22-30); CHLORIDE 81 mmol/L (98-107); CREATININE RESULT 1.02 mg/dL (0.52-1.25); GLUCOSE 118 mg/dL (75-110); POTASSIUM 4.3 mmol/L (3.6-5.0); SODIUM 121.3 mmol/L (137-145)
[2017-02-23] MEDS: LANSOPRAZOLE 30 MG TAB.RAP.DR PO SCH ×2 (05:12→18:11)
[2017-02-23] MEDS: ACETAMINOPHEN 325 MG TABLET PO PRN (05:17)
[2017-02-23 07:12] LABS: ANION GAP 8 (5-19)
[2017-02-23 07:39] LABS: BLOOD UREA NITROGEN 11 mg/dL (7-20); CALCIUM 9.2 mg/dL (8.4-10.2); CARBON DIOXIDE 30 mmol/L (22-30); CHLORIDE 83 mmol/L (98-107); CREATININE RESULT 1.02 mg/dL (0.52-1.25); GLUCOSE 98 mg/dL (75-110); POTASSIUM 4.2 mmol/L (3.6-5.0); SODIUM 121.1 mmol/L (137-145)
[2017-02-23] MEDS: LISINOPRIL 10 MG TABLET PO SCH (09:36)
[2017-02-23] MEDS: AMLODIPINE BESYLATE 10 MG TABLET PO SCH (09:37)
[2017-02-23] MEDS: PAROXETINE HCL 20 MG TABLET PO SCH (09:38)
[2017-02-23] MEDS: METOPROLOL TARTRATE 50 MG TABLET PO SCH (09:38)
--- NOTE | 2017-02-23 11:29 | Physician Advisory Note ---
Physician Advisor ProgressNote .: Pursuant to the plan for [facility], I have reviewed the medical record for this patient. Physician Advisor Statement: Very nice documentation of acute hyponatremia/cause, SARA, ongoing need for hospitalization due to continued acute symptomatic hyponatremia. Nothing to add. CK
[2017-02-23 13:44] LABS: ANION GAP 10 (5-19); BLOOD UREA NITROGEN 12 mg/dL (7-20); CALCIUM 9.3 mg/dL (8.4-10.2); CARBON DIOXIDE 28 mmol/L (22-30); CHLORIDE 84 mmol/L (98-107); CREATININE RESULT 0.95 mg/dL (0.52-1.25); GLUCOSE 110 mg/dL (75-110); POTASSIUM 4.7 mmol/L (3.6-5.0); SODIUM 121.9 mmol/L (137-145)
--- NOTE | 2017-02-23 13:45 | PDOC PROGRESS REPORT ---
Subjective Progress Note for:: 02/23/17 Subjective:: Pt states that she is not nauseated today. Pt states that she has been about to eat her meals with no problems. Physical Exam Vital Signs: Temp Pulse Resp BP Pulse Ox 98.1 F 87 16 140/75 H 98 02/23/17 12:00 02/23/17 12:00 02/23/17 12:00 02/23/17 12:00 02/23/17 12:00 Intake & Output 02/22/17 02/23/17 02/24/17 06:59 06:59 06:59 Intake Total 940 1573 458 Output Total 300 1800 Balance 640 -227 458 Weight 56.1 kg 53.7 kg General appearance: PRESENT: no acute distress, well-developed, well-nourished Head exam: PRESENT: atraumatic, normocephalic Eye exam: PRESENT: conjunctiva pink, EOMI. ABSENT: scleral icterus Ear exam: PRESENT: normal external ear exam Mouth exam: PRESENT: moist, tongue midline Neck exam: ABSENT: carotid bruit, JVD, lymphadenopathy, thyromegaly Respiratory exam: PRESENT: clear to auscultation benito. ABSENT: rales, rhonchi, wheezes Cardiovascular exam: PRESENT: RRR. ABSENT: diastolic murmur, rubs, systolic murmur Pulses: PRESENT: normal dorsalis pedis pul Vascular exam: PRESENT: normal capillary refill GI/Abdominal exam: PRESENT: normal bowel sounds, soft. ABSENT: distended, guarding, mass, organolmegaly, rebound, tenderness Rectal exam: PRESENT: deferred Extremities exam: PRESENT: full ROM. ABSENT: calf tenderness, clubbing, pedal edema Neurological exam: PRESENT: alert, awake, oriented to person, oriented to place , oriented to time, oriented to situation, CN II-XII grossly intact. ABSENT: motor sensory deficit Psychiatric exam: PRESENT: appropriate affect, normal mood. ABSENT: homicidal ideation, suicidal ideation Skin exam: PRESENT: dry, intact, warm. ABSENT: cyanosis, rash Results Laboratory Results: 02/22/17 04:22 02/22/17 02/22/17 02/22/17 13:05 16:10 23:57 Sodium 118.0 L* 117.8 L* 121.3 L Potassium 4.6 4.6 4.3 Chloride 81 L 81 L 81 L Carbon Dioxide 29 30 30 Anion Gap 8 7 10 BUN 12 15 14 Creatinine 1.03 1.09 1.02 Est GFR ( Amer) > 60 > 60 > 60 Est GFR (Non-Af Amer) 55 L 51 L 55 L Glucose 120 H 118 H 118 H Calcium 9.2 9.0 9.0 02/23/17 06:27 Sodium 121.1 L Potassium 4.2 Chloride 83 L Carbon Dioxide 30 Anion Gap 8 BUN 11 Creatinine 1.02 Est GFR ( Amer) > 60 Est GFR (Non-Af Amer) 55 L Glucose 98 Calcium 9.2 Impressions: KUB X-Ray 02/21/17 00:00 IMPRESSION: NO RADIOGRAPHIC EVIDENCE FOR ACUTE ABDOMINAL DISEASE. Lumbar Spine X-Ray 02/21/17 00:00 IMPRESSION: Mild degenerative disc changes facet arthropathy as described. No acute abnormality Assessment & Plan - Diagnosis (1) Hyponatremia Is this a current diagnosis for this admission?: Yes Plan: Improving. Will continue NS. Once Sodium greater than [address] on Sodium chloride tabs with discharge home. (2) Acute renal injury Is this a current diagnosis for this admission?: Yes Plan: in setting of Normal Renal function: Resolved. (3) Dehydration Is this a current diagnosis for this admission?: Yes Plan: Resolved. Pt given IVF. (4) Nausea & vomiting Qualifiers: Vomiting type: unspecified Vomiting Intractability: non-intractable Qualified Code(s): R11.2 - Nausea with vomiting, unspecified Is this a current diagnosis for this admission?: Yes Plan: Secondary to Symptomatic Hyponatremia: Resolved. Zofran PRN (5) Hypertension Qualifiers: Hypertension type: essential hypertension Qualified Code(s): I10 - Essential (primary) hypertension Is this a current diagnosis for this admission?: Yes Plan: Will continue current treatment. (6) Back pain at L4-L5 level Is this a current diagnosis for this admission?: Yes Plan: Chronic Back Pain: Will continue Lidoderm patch and Hydrocodone. Pt will need to follow up with outpatient physician. (7) Tobacco abuse Is this a current diagnosis for this admission?: Yes Plan: Encourage discontinuation of tobacco abuse. Pt states that she is trying to cut back. (8) DVT prophylaxis Is this a current diagnosis for this admission?: Yes Plan: SCDs - Time Time Spent with patient: 15-24 minutes - Anticipate Discharge home tomorrow. Anticipated discharge: Home
[2017-02-23] MEDS: LIDOCAINE 5% (700 MG) TRANSDERMAL ADH..PATCH TP SCH (14:27)
[2017-02-23] MEDS: HYDROCODONE/ACETAMINOPHEN 10-325 MG TABLET PO PRN ×2 (14:27→20:33)
[2017-02-23] MEDS ORDERED: NICOTINE 21 MG/24 HR PATCH.TD24 TD PRN (14:30)
[2017-02-23 20:31] LABS: ANION GAP 7 (5-19); BLOOD UREA NITROGEN 9 mg/dL (7-20); CALCIUM 9.2 mg/dL (8.4-10.2); CARBON DIOXIDE 30 mmol/L (22-30); CHLORIDE 85 mmol/L (98-107); CREATININE RESULT 0.97 mg/dL (0.52-1.25); GLUCOSE 111 mg/dL (75-110); POTASSIUM 4.4 mmol/L (3.6-5.0); SODIUM 122.2 mmol/L (137-145)
[2017-02-23] MEDS ORDERED: PHARMACY COMMUNICATION ORDER MC SCH (22:00)
[2017-02-24] MEDS: HYDROCODONE/ACETAMINOPHEN 10-325 MG TABLET PO PRN ×2 (02:25→08:58)
[2017-02-24 02:57] LABS: ANION GAP 8 (5-19); BLOOD UREA NITROGEN 8 mg/dL (7-20); CARBON DIOXIDE 28 mmol/L (22-30); CHLORIDE 89 mmol/L (98-107); CREATININE RESULT 0.85 mg/dL (0.52-1.25); GLUCOSE 104 mg/dL (75-110); POTASSIUM 4.5 mmol/L (3.6-5.0); SODIUM 125.2 mmol/L (137-145)
[2017-02-24] MEDS: LANSOPRAZOLE 30 MG TAB.RAP.DR PO SCH (05:16)
[2017-02-24 08:52] LABS: ANION GAP 9 (5-19); BLOOD UREA NITROGEN 7 mg/dL (7-20); CALCIUM 9.3 mg/dL (8.4-10.2); CARBON DIOXIDE 29 mmol/L (22-30); CHLORIDE 89 mmol/L (98-107); CREATININE RESULT 0.85 mg/dL (0.52-1.25); GLUCOSE 96 mg/dL (75-110); POTASSIUM 4.3 mmol/L (3.6-5.0); SODIUM 127.1 mmol/L (137-145)
[2017-02-24] MEDS: LISINOPRIL 10 MG TABLET PO SCH (09:00)
[2017-02-24] MEDS: AMLODIPINE BESYLATE 10 MG TABLET PO SCH (09:01)
[2017-02-24] MEDS: METOPROLOL TARTRATE 50 MG TABLET PO SCH (09:01)
[2017-02-24] MEDS: PAROXETINE HCL 20 MG TABLET PO SCH (09:01)
[2017-02-24] MEDS ORDERED: LIDOCAINE 5% (700 MG) TRANSDERMAL ADH..PATCH TP SCH (10:00)
--- NOTE | 2017-02-24 10:28 | PDOC DISCHARGE SUMMARY ---
General - Admit/Disc Date/PCP Admission Date/Primary Care Provider: 02/21/17 13:06 SONAM HUBER Discharge Date: 02/24/17 - Discharge Diagnosis (1) Hyponatremia Is this a current diagnosis for this admission?: Yes Summary: Secondary to HCTZ: CTZ was discontinued. Patient was given IV fluids and sodium corrected. Patient is being discharged home. Place patient on sodium chloride replacement for 3 days. Pt's nausea and vomiting has resolved. (2) Acute renal injury Is this a current diagnosis for this admission?: Yes Summary: Secondary to Dehydration: Resolved with IVF. (3) Dehydration Is this a current diagnosis for this admission?: Yes Summary: Resolved with IVF. (4) Nausea & vomiting Is this a current diagnosis for this admission?: Yes Summary: Secondary to Symptomatic Hyponatremia. (5) Hypertension Is this a current diagnosis for this admission?: Yes Summary: Pt told not to take HCTZ again. Pt was placed on Lisinopril, Metoprolol, and Norvasc. (6) Back pain at L4-L5 level Is this a current diagnosis for this admission?: Yes Summary: Continue home medication (7) Tobacco abuse Is this a current diagnosis for this admission?: Yes Summary: Encouraged pt to stop smoking. - Additional Information Resuscitation Status: Full Code Discharge Diet: Regular Discharge Activity: Activity As Tolerated Home Medications: Clonazepam [Klonopin] 0.5 mg PO Q12HP PRN 02/21/17 Fluoxetine HCl [Prozac 20 mg Capsule] 20 mg PO DAILY 02/21/17 Hydrocodone Bit/Acetaminophen [Hydrocodon-Acetaminophen 5-325] 1 each PO Q4HP PRN 02/21/17 Hydroxyzine Pamoate [Vistaril 50 mg Capsule] 50 mg PO Q6 02/21/17 Omeprazole 20 mg PO Q12 02/21/17 Amlodipine Besylate [Norvasc 10 mg Tablet] 10 mg PO DAILY #30 tablet 02/24/17 Lisinopril [Prinivil 10 mg Tablet] 20 mg PO DAILY #30 tablet 02/24/17 Lisinopril [Zestril] 20 mg PO DAILY #30 tablet 02/24/17 Metoprolol Tartrate [Lopressor 50 mg Tablet] 50 mg PO DAILY #30 tablet 02/24/17 Sodium Chloride [Sodium Chloride 1 Gm Tablet] 1 gm PO BID #6 tablet 02/24/17 History of Present Illness History of Present Illness: NANNETTE SHAFFER is a 57 year old female who presents with complaint of nausea and vomiting which started 1-2 days ago. Pt states that she has been feeling very weak. Pt states that she has happened before. Pt states that she is also having back pain. Hospital Course Hospital Course: Patient was admitted to the hospital for symptomatic hyponatremia secondary to hydrochlorothiazide. Patient's hydrochlorothiazide was discontinued. Patient was placed on IV fluids for sodium correction. BMPs were done frequently to monitor patient's sodium correction. As patient's sodium improved patient's nausea and vomiting resolved. Patient's blood pressure was addressed during this hospitalization. Patient's blood pressure is under good control on lisinopril, metoprolol. and Norvasc. At time of discharge patient's sodium was 127. Patient was placed on sodium chloride 1 g tablets twice a day for 3 days. Patient will need to follow-up with primary doctor in 1 week. Patient was told not to take HCTZ again. Physical Exam Vital Signs: Temp Pulse Resp BP Pulse Ox 98.3 F 62 16 123/62 96 02/24/17 07:42 02/24/17 07:42 02/24/17 07:42 02/24/17 07:42 02/24/17 07:42 Intake & Output 02/23/17 02/24/17 02/25/17 06:59 06:59 06:59 Intake Total 1573 2590 Output Total 1800 Balance -227 2590 Weight 53.7 kg 57 kg General appearance: PRESENT: no acute distress, well-developed, well-nourished Head exam: PRESENT: atraumatic, normocephalic Eye exam: PRESENT: conjunctiva pink, EOMI. ABSENT: scleral icterus Ear exam: PRESENT: normal external ear exam Mouth exam: PRESENT: moist, tongue midline Neck exam: ABSENT: carotid bruit, JVD, lymphadenopathy, thyromegaly Respiratory exam: PRESENT: clear to auscultation benito. ABSENT: rales, rhonchi, wheezes Cardiovascular exam: PRESENT: RRR. ABSENT: diastolic murmur, rubs, systolic murmur Pulses: PRESENT: normal dorsalis pedis pul Vascular exam: PRESENT: normal capillary refill GI/Abdominal exam: PRESENT: normal bowel sounds, soft. ABSENT: distended, guarding, mass, organolmegaly, rebound, tenderness Rectal exam: PRESENT: deferred Extremities exam: PRESENT: full ROM. ABSENT: calf tenderness, clubbing, pedal edema Neurological exam: PRESENT: alert, awake, oriented to person, oriented to place , oriented to time, oriented to situation, CN II-XII grossly intact. ABSENT: motor sensory deficit Psychiatric exam: PRESENT: appropriate affect, normal mood. ABSENT: homicidal ideation, suicidal ideation Skin exam: PRESENT: dry, intact, warm. ABSENT: cyanosis, rash Results Laboratory Results: 02/22/17 04:22 02/24/17 08:11 02/23/17 02/23/17 02/24/17 12:54 19:54 02:25 Sodium 121.9 L 122.2 L 125.2 L Potassium 4.7 4.4 4.5 Chloride 84 L 85 L 89 L Carbon Dioxide 28 30 28 Anion Gap 10 7 8 BUN 12 9 8 Creatinine 0.95 0.97 0.85 Est GFR ( Amer) > 60 > 60 > 60 Est GFR (Non-Af Amer) > 60 59 L > 60 Glucose 110 111 H 104 Calcium 9.3 9.2 9.0 02/24/17 08:11 Sodium 127.1 L Potassium 4.3 Chloride 89 L Carbon Dioxide 29 Anion Gap 9 BUN 7 Creatinine 0.85 Est GFR ( Amer) > 60 Est GFR (Non-Af Amer) > 60 Glucose 96 Calcium 9.3 Impressions: KUB X-Ray 02/21/17 00:00 IMPRESSION: NO RADIOGRAPHIC EVIDENCE FOR ACUTE ABDOMINAL DISEASE. Lumbar Spine X-Ray 02/21/17 00:00 IMPRESSION: Mild degenerative disc changes facet arthropathy as described. No acute abnormality Qualifiers PATEINT BEING DISCHARGED WITH ANY OF THE FOLLOWING DIAGNOSIS?: No
[2017-02-24 12:10] VITALS: BP 140/75
== END 2017-02-24 12:30 | disposition home or self-care (01) | DRG 641 ==
LOC: ER 10:09 → EH 13:06 → UNDOADMIN 13:09 → EH 13:09 → 3W 14:47
DX: E87.1 Hypo-osmolality and hyponatremia (principal); N17.9 Acute kidney failure, unspecified; T50.2X5A Adverse effect of carbonic-anhydrase inhibitors, benzothiadiazides and other diuretics, initial encounter; E86.0 Dehydration; I10 Essential (primary) hypertension; M54.5 Low back pain; F17.200 Nicotine dependence, unspecified, uncomplicated; J43.9 Emphysema, unspecified; M06.9 Rheumatoid arthritis, unspecified; F31.9 Bipolar disorder, unspecified; Z90.49 Acquired absence of other specified parts of digestive tract; Z90.710 Acquired absence of both cervix and uterus; Z82.49 Family history of ischemic heart disease and other diseases of the circulatory system; Z88.0 Allergy status to penicillin; Z88.6 Allergy status to analgesic agent; Z88.8 Allergy status to other drugs, medicaments and biological substances
CPT/HCPCS: 36415; 72110; 74000; 80048; 80053; 83690; 83735; 83935; 84300; 85025; 96374; 99291; J2765; J7030; S0119